=== PATIENT | female | born 1945 | race Caucasian/White ===

== ENCOUNTER 2016-08-15 21:32 | Outpatient (CLI) | payer MEDICARE, OTHER | END 2016-08-15 21:33 | disposition EMS.NT | DX: R68.89 Other general symptoms and signs (principal) ==

== ENCOUNTER 2016-09-13 15:06 | Outpatient (CLI) | payer MEDICARE, OTHER ==
[2016-09-13 17:55] LABS: BILIRUBIN,URINE NEGATIVE (NEGATIVE); PH,URINE 5.5 PH (5.0-7.5)
[2016-09-13 17:57] LABS: UA CHARGE (STRIP ONLY) YES; UR CULTURE IF IND NOT INDICATED
== END 2016-09-13 15:07 | disposition home or self-care (01) ==
LOC: LAB.F 15:06
PROVIDERS: ATTEND Internal Medicine
DX: R82.90 Unspecified abnormal findings in urine (principal)
CPT/HCPCS: 81001; 81003; 87086

== ENCOUNTER 2016-12-12 13:53 | Outpatient (CLI) | payer MEDICARE, OTHER ==
[2016-12-12 19:22] LABS: BILIRUBIN,URINE NEGATIVE (NEGATIVE)
[2016-12-12 20:01] LABS: WBC,URINE 0-3 /HPF (0-5)
== END 2016-12-12 13:54 | disposition home or self-care (01) ==
LOC: LAB.F 13:53
PROVIDERS: ATTEND Internal Medicine
DX: Z13.9 Encounter for screening, unspecified (principal)
CPT/HCPCS: 81001

== ENCOUNTER 2018-01-09 16:52 | Outpatient (CLI) | payer MEDICARE, OTHER ==
[2018-01-09] MEDS ORDERED: GADOBUTROL 7.5 MMOL/7.5 ML VIAL ONE (18:05)
[2018-01-09] MEDS ORDERED: GADOBUTROL 7.5 MMOL/7.5 ML VIAL IVP ONE ×2 (18:15)
--- NOTE | 2018-01-10 13:37 | MRI Report ---
Reason: ASYMMETRICAL LEFT SENSORINEURAL HEARING LOSS Procedure Date: 01/09/2018 Accession Number: [id number] / [id number] Procedure: MRI - IACS W/WO CPT Code: FULL RESULT: EXAM: MRI BRAIN AND INTERNAL AUDITORY CANAL (IAC),WITHOUT AND WITH CONTRAST. EXAM DATE: 01/09/2018 06:58 PM. CLINICAL HISTORY: Asymmetrical left sensorineural hearing loss. COMPARISON: None. TECHNIQUE: Multiplanar, multisequence T1-weighted and fluid-sensitive MRI sequences of the brain and IACs were performed. Other: None. IV Contrast: Without and with 6 mL Gadavist. FINDINGS: Brain Volume: Mild to moderate generalized cerebral volume loss consistent with atrophy of the brain. Parenchyma/Dura: No restricted diffusion to suggest acute or recent ischemic infarct.Minimal amorphous white matter T2 hyperintensity in the cerebral hemispheres likely from aging and chronic microangiopathy, though nonspecific. No abnormal enhancement. No evidence for intracranial space-occupying lesion. Internal Auditory Canals (IACs): Normal. No cranial nerve lesion or inflammatory process identified. The inner ear structure are symmetric and unremarkable. Ventricles/Cisterns: No hydrocephalus. Incidental cavum septum pellucidum and cavum vergae. Mild ventriculomegaly is probably from cerebral volume loss. Orbits: Prior right lens extraction. Sella Turcica: The pituitary gland, cavernous sinuses, suprasellar cistern and optic chiasm are unremarkable. Vasculature: Normal signal flow void is seen in the major arterial structures at the skull base. The dural sinuses are patent and enhance normally. Sinuses: No acute sinus disease. Bones: No focal pathologic appearing marrow signal changes. Other: None. IMPRESSION: 1. No acute abnormality. Mild chronic age-related changes. 2. Normal MRI of the IAC and posterior fossa. RADIA
== END 2018-01-09 16:53 | disposition home or self-care (01) ==
LOC: DI 16:52
PROVIDERS: ATTEND Otolaryngology
DX: H90.42 Sensorineural hearing loss, unilateral, left ear, with unrestricted hearing on the contralateral side (principal)
CPT/HCPCS: 70543; A9585

== ENCOUNTER 2018-03-25 18:49 | Observation (INO) | payer MEDICARE, OTHER ==
--- NOTE | 2018-03-25 20:37 | ED Physician Documentation ---
PD HPI FOCAL NEURO - Stated complaint Stated Complaint: RT EYE VISION LOSS - Chief complaint Chief Complaint: Neuro - History obtained from History obtained from: Patient - History of Present Illness Timing - onset: Enter time (15:30), Today Timing - duration: Hours Timing - details: Abrupt onset Severity of deficit: Moderate Weakness: No: Face, Arm, Hand, Leg, Foot, Right, Left Numbness: No: Face, Arm, Hand, Leg, Foot, Right, Left Associated symptoms: No: Headache, Nausea / vomiting, Seizure, Syncope, Fall, Head injury, Chest pain, Neck pain, Back pain, Fever Contributing factors: negative: Anticoagulated, Vascular dz, Atrial fibrillation, Prosthetic heart valve Similar symptoms before: Has not had sx before Recently seen: Other (seen by ophthalmology this afternoon, was sent to ED. Material Cutter d/w other ED MD and told him that the ophthalmology exam was unremarkable except for severe right eye visual deficit) - Additional information Additional information: sudden onset right eye vision loss except for small area that is just above/right of central axis. No other c/o. Denies any GARCIA, denies pain, numbness, weakness. Review of Systems Constitutional: reports: Reviewed and negative Eyes: reports: Loss of vision. denies: Decreased vision, Photophobia, Discharge, Irritation Ears: reports: Reviewed and negative Nose: reports: Reviewed and negative Throat: reports: Reviewed and negative Cardiac: reports: Reviewed and negative Respiratory: reports: Reviewed and negative GI: reports: Reviewed and negative Musculoskeletal: denies: Neck pain Neurologic: reports: Reviewed and negative PD PAST MEDICAL HISTORY - Past Medical History Past Medical History: Yes Cardiovascular: Hypertension, Murmur Respiratory: None Endocrine/Autoimmune: None GI: None BILINGUAL BRANCH MANAGER: Fibroids : None HEENT: Chronic vision loss, Other Psych: Anxiety, Panic attacks Musculoskeletal: None, Osteopenia Derm: None - Past Surgical History Past Surgical History: Yes General: Hiatal hernia repair Ortho: Other HEENT: Cataracts - Present Medications Home Medications: Ambulatory Orders Medication Instructions Recorded Confirmed Amlodipine Besylate 10 mg PO PRN PRN 02/26/13 01/23/17 Atenolol 50 mg PO HS 02/26/13 01/23/17 Aspirin [Adult Low Dose Aspirin EC] 81 mg ORAL DAILY 08/10/15 01/23/17 Atorvastatin Calcium 10 mg PO DAILY 08/22/15 01/23/17 Cyanocobalamin (Vitamin B-12) 500 mcg SL DAILY #30 tab.subl 01/24/17 [Vitamin B-12 (500 mcg sublingual)] Thiamine [Vitamin B-1] 100 mg PO DAILY tablet 01/24/17 - Allergies Allergies/Adverse Reactions: Allergies Allergy/AdvReac Type Severity Reaction Status Date / Time lisinopril AdvReac Intermediate angioedema Verified 03/25/18 18:59 paroxetine HCl * [From Paxil] AdvReac Intermediate shakes/cold Verified 03/25/18 18:59 triamterene [Triamterene] AdvReac Intermediate low sodium Verified 03/25/18 18:59 and potassium levels - Social History Does the pt smoke?: No Smoking Status: Never smoker Does the pt drink ETOH?: Yes ETOH Use: Beer Does the pt have substance abuse?: No - Immunizations Immunizations are current?: Yes - POLST Patient has POLST: No PD ED PE NORMAL - Vitals Vital signs reviewed: Yes - General General: Alert and oriented X 3, No acute distress, Well developed/nourished - HEENT HEENT: EOMI, Moist mucous membranes - Cardiac Cardiac: RRR, No murmur - Respiratory Respiratory: No respiratory distress, Clear bilaterally - Derm Derm: Normal color, Warm and dry, No rash - Neuro Neuro: Alert and oriented X 3, No motor deficit, No sensory deficit, Normal speech Eye Opening: Spontaneous Motor: Obeys Commands Verbal: Oriented GCS Score: 15 PD ED PE EXPANDED - Eyes Eyes: Right eye, Other (severe right eye visual deficit: can only see small area that is immediately above and right of central axis) Results - Vitals Vitals: Vital Signs - 24 hr 03/25/18 03/25/18 03/26/18 18:55 22:07 00:28 Temperature 36.5 C 36.9 C 36.9 C Heart Rate 84 71 75 Respiratory 16 16 12 Rate Blood Pressure 133/77 H 136/80 H 152/81 H O2 Saturation 98 95 97 03/26/18 03:55 Temperature 36.8 C Heart Rate 84 Respiratory 16 Rate Blood Pressure 142/81 H O2 Saturation 95 Oxygen O2 Source Room air - Labs Labs: Laboratory Tests 03/25/18 03/25/18 03/25/18 05:20 05:20 21:47 WBC 5.5 RBC 3.91 L Hgb 13.5 Hct 38.7 MCV 99.2 H MCH 34.6 H MCHC 34.9 RDW 14.9 Plt Count 269 MPV 7.3 L Neut # (Auto) 2.9 Lymph # (Auto) 1.6 [place] # (Auto) 0.6 Eos # (Auto) 0.2 Baso # (Auto) 0.1 Absolute Nucleated RBC 0.00 Nucleated RBC % 0.0 ESR Sodium Potassium Chloride Carbon Dioxide Anion Gap BUN Creatinine Estimated GFR (MDRD) Glucose Lactic Acid 0.9 Calcium Total Bilirubin AST ALT Alkaline Phosphatase Total Protein Albumin Globulin Albumin/Globulin Ratio Lipase Ethyl Alcohol < 5.0 03/25/18 03/25/18 21:47 21:47 WBC RBC Hgb Hct MCV MCH MCHC RDW Plt Count MPV Neut # (Auto) Lymph # (Auto) [place] # (Auto) Eos # (Auto) Baso # (Auto) Absolute Nucleated RBC Nucleated RBC % ESR 29 Sodium 139 Potassium 3.9 Chloride 102 Carbon Dioxide 22 Anion Gap 15.0 H BUN 9 Creatinine 0.7 Estimated GFR (MDRD) 83 L Glucose 97 Lactic Acid Calcium 9.2 Total Bilirubin 0.8 AST 52 H ALT 25 Alkaline Phosphatase 66 Total Protein 8.5 H Albumin 4.5 Globulin 4.0 Albumin/Globulin Ratio 1.1 Lipase 42 Ethyl Alcohol - Rads (name of study) CT head Radiology: Prelim report reviewed, See rad report CT orbits Radiology: Prelim report reviewed, See rad report PD MEDICAL DECISION MAKING - ED course Complexity details: reviewed results, re-evaluated patient, considered differential, d/w patient ED course: Patient initially had dilated pupils bilaterally (had just come from developmental education instructor's office). Later in ED stay, after the medication had worn off, there was a left relative afferent pupil defect noted (light to right eye = bilateral pupil constriction, swing light to left eye = both pupils dilate). I reviewed results of tests with patient and explained that I would obtain neurology consult. She requested that I contact neuro at [facility]. A page was put out to neurology at [facility] but we did not receive a return call during remainder of patient's ED stay. I then contacted neurology at [facility], d/w Dr. Varner. He said further testing would be indicated, such as CTA neck and MR brain, but says there are no beds available at [facility] at this time. I then contacted neurology at [facility] (Dr. Causey); she also recommends same tests, as well as PO ASA 325mg. She says patient can be admitted to [facility]; I explained that we do not have ophthalmology continuous improvement consultant, and she recommends I d/w ophtho at [facility]. D/W Dr. Potter (ophthalmology at [facility]); she recommends that the next phase of testing should be per neurologist's recommendation and does not feel patient needs transfer at this time. D/W Dr. Causey and she also agrees patient would be appropriate to have CTA neck and MR without contrast of brain at [facility]. Departure - Departure Disposition: 66 [facility] DC/Xfer Clinical Impression: Visual loss Condition: Stable Discharge Date/Time: 03/26/18 05:39
[2018-03-25] MEDS ORDERED: SODIUM CHLORIDE 0.9% 1,000 ML IV ONE (20:51)
[2018-03-25 21:55] LABS: BASOPHILS # (AUTO) 0.1 10^3/uL (0.0-0.1); BASOPHILS % (AUTO) 2.2 %; EOSINOPHILS # (AUTO) 0.2 10^3/uL (0.0-0.7); EOSINOPHILS % (AUTO) 4.2 %; HGB - HEMOGLOBIN 13.5 g/dL (12.0-16.0); LYMPHOCYTES # (AUTO) 1.6 10^3/uL (1.5-3.5); LYMPHOCYTES % (AUTO) 28.7 %; MEAN CORPUSCULAR HEMOGLOBIN 34.6 pg (27.0-31.0); MEAN CORPUSCULAR HGB CONC 34.9 g/dL (32.0-36.0); MEAN CORPUSCULAR VOLUME 99.2 fL (81.0-99.0); MEAN PLATELET VOLUME 7.3 fL (7.9-10.8); MONOCYTES # (AUTO) 0.6 10^3/uL (0.0-1.0); MONOCYTES % (AUTO) 11.4 %; NEUTROPHILS # (AUTO) 2.9 10^3/uL (1.5-6.6); NEUTROPHILS % (AUTO) 53.5 %; PLT - PLATELET COUNT 269 10^3/uL (130-450); RED BLOOD COUNT 3.91 10^6/uL (4.20-5.40); RED CELL DISTRIBUTION WIDTH 14.9 % (12.0-15.0); WHITE BLOOD COUNT 5.5 x10^3/uL (4.8-10.8)
[2018-03-25 22:07] LABS: ALBUMIN 4.5 g/dL (3.2-5.5); ALBUMIN/GLOBULIN RATIO 1.1 (1.0-2.2); BILIRUBIN,TOTAL 0.8 mg/dL (0.2-1.0); CALCIUM 9.2 mg/dL (8.5-10.3); CREATININE 0.7 mg/dL (0.4-1.0); TOTAL PROTEIN 8.5 g/dL (6.7-8.2)
[2018-03-25] MEDS ORDERED: IOVERSOL 320 100 ML VIAL IVP ONE (23:06)
--- NOTE | 2018-03-25 23:57 | CT Report ---
Reason: right eye vision loss Procedure Date: 03/25/2018 Accession Number: [id number] / [id number] Procedure: CT - Head W/O CPT Code: FULL RESULT: EXAM: CT HEAD EXAM DATE: 03/25/2018 10:50 PM. CLINICAL HISTORY: Right eye vision loss. COMPARISON: None. TECHNIQUE: Multiaxial CT images were obtained from the foramen magnum to the vertex. Reformats: Sagittal and coronal. IV contrast: None. In accordance with CT protocol optimization, one or more of the following dose reduction techniques were utilized for this exam: automated exposure control, adjustment of mA and/or KV based on patient size, or use of iterative reconstructive technique. FINDINGS: Parenchyma: No intraparenchymal hemorrhage. No evidence of mass, midline shift, or CT findings of infarction. Lazaro-white differentiation is distinct. Extraaxial Spaces: Normal for age. No subdural or epidural collections identified. Ventricles: Mild prominence of lateral ventricles. Similar prominence of sulci. No mass-effect. No midline shift. Sinuses and Orbits: Status post apparent prior right lens replacement. Small focus of calcification right posterior globe consistent with drusen. There is bilateral maxillary sinus mucosal thickening. Bones: No evidence of fracture or calvarial defect. Other: There are vascular calcifications.. IMPRESSION: 1. No CT evidence of acute intracranial process. New PEG of 2. Right optic disk drusen. RADIA
--- NOTE | 2018-03-26 00:17 | CT Report ---
Reason: right eye vision loss Procedure Date: 03/25/2018 Accession Number: [id number] / [id number] Procedure: CT - Orbits W/ CPT Code: FULL RESULT: EXAM: CT ORBITS WITH CONTRAST EXAM DATE: 03/25/2018 10:59 PM. CLINICAL HISTORY: Right eye vision loss. COMPARISONS: Head CT 03/25/2018. TECHNIQUE: Thin-section axial images were acquired of the face with IV contrast contrast (100 cc Optiray 320). Post-processing: Coronal and sagittal reformats. Other: None. In accordance with CT protocol optimization, one or more of the following dose reduction techniques were utilized for this exam: automated exposure control, adjustment of mA and/or KV based on patient size, or use of iterative reconstructive technique. FINDINGS: Soft Tissue: Unremarkable. Orbits: Prior right lens replacement. Right optic disk drusen. Otherwise unremarkable. Bones: No fracture or bone lesion. Temporomandibular Joints: The temporomandibular joints are symmetric and normally located. Sinuses: Bilateral macular sinus mucosal thickening. Other: None. IMPRESSION: 1. Right optic disk drusen. 2. 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 3. No enhancing abnormality. RADIA
[2018-03-26] MEDS ORDERED: ASPIRIN CHEW 81 MG TABLET PO STA (03:19)
[2018-03-26] MEDS ORDERED: IOVERSOL 320 100 ML VIAL IVP ONE ×2 (03:28)
[2018-03-26] MEDS ORDERED: SODIUM CHLORIDE FLUSH 0.9% 10 ML SYRINGE IVP PRN (04:50)
[2018-03-26] MEDS ORDERED: ACETAMINOPHEN 325 MG TABLET PO PRN (04:50)
[2018-03-26] MEDS ORDERED: PROCHLORPERAZINE 10 MG/2 ML VIAL IVP PRN (04:50)
[2018-03-26] MEDS ORDERED: LORazepam 2 MG/ML VIAL IVP PRN (05:06)
[2018-03-26 05:39] LABS: ALBUMIN 3.8 g/dL (3.2-5.5); BILIRUBIN,TOTAL 1.3 mg/dL (0.2-1.0); CALCIUM 8.6 mg/dL (8.5-10.3); CREATININE 0.7 mg/dL (0.4-1.0); TOTAL PROTEIN 7.6 g/dL (6.7-8.2)
[2018-03-26 05:41] LABS: BASOPHILS # (AUTO) 0.1 10^3/uL (0.0-0.1); BASOPHILS % (AUTO) 1.9 %; EOSINOPHILS # (AUTO) 0.1 10^3/uL (0.0-0.7); EOSINOPHILS % (AUTO) 2.5 %; HGB - HEMOGLOBIN 12.8 g/dL (12.0-16.0); LYMPHOCYTES % (AUTO) 17.3 %; MEAN CORPUSCULAR HEMOGLOBIN 34.3 pg (27.0-31.0); MEAN CORPUSCULAR HGB CONC 34.8 g/dL (32.0-36.0); MEAN CORPUSCULAR VOLUME 98.7 fL (81.0-99.0); MEAN PLATELET VOLUME 7.3 fL (7.9-10.8); MONOCYTES # (AUTO) 0.7 10^3/uL (0.0-1.0); MONOCYTES % (AUTO) 11.3 %; NEUTROPHILS # (AUTO) 3.9 10^3/uL (1.5-6.6); PLT - PLATELET COUNT 232 10^3/uL (130-450); RED BLOOD COUNT 3.72 10^6/uL (4.20-5.40); RED CELL DISTRIBUTION WIDTH 14.7 % (12.0-15.0); WHITE BLOOD COUNT 5.8 x10^3/uL (4.8-10.8)
[2018-03-26 06:06] LABS: INR 1.1 (0.8-1.2); PT - PROTHROMBIN TIME 12.4 secs (9.9-12.6)
[2018-03-26 06:14] LABS: FOLATE 5.41 ng/mL (5.90 - >24.8)
--- NOTE | 2018-03-26 06:48 | HISTORY & PHYSICAL EXAMINATION ---
DATE OF SERVICE: 03/26/2018 Physician: Natasha Glover MD HISTORY OF PRESENT ILLNESS: This is a 72-year-old, white female with a history of hypertension, several episodes of sepsis from a urinary source, where she presented with severe weakness and hypothermia, history of alcohol use with prior lactic acidosis and peripheral neuropathy from alcohol abuse. The patient presented today after having sudden right eye vision loss at 3:30 p.m. and went to an [employer]. The [employer] sent her to the emergency room and spoke to an ER MD, stating that the ophthalmology exam was normal, except for right-sided vision loss except for one small area in the right upper quadrant where she could see. The patient had workup in the emergency room including a CT of the brain that showed no evidence of a stroke. The emergency room doctor called Neurology and they recommended that she have admission for workup for a source of a stroke causing central retinal artery occlusion. The emergency room doctor again called Ophthalmology, who confirmed that if the eye exam by a different [employer] was unremarkable, then no additional ophthalmology reevaluation was needed. The patient has not had a change in her vision loss for over 12 hours now. PAST MEDICAL HISTORY: Hypertension, alcohol abuse, prior sepsis from a UTI source, prior lactic acidosis from alcohol abuse, peripheral neuropathy also felt to be from alcohol abuse. ALLERGIES 1. LISINOPRIL 2. PAROXETINE. 3. TRIAMTERENE. MEDICATIONS 1. Atenolol 50 mg at bedtime. 2. Baby aspirin daily. 3. Lipitor 20 mg at bedtime. 4. Thiamine and folate daily. FAMILY HISTORY: No inherited diseases. SOCIAL HISTORY: Patient in the past was a heavy gin drinker. Now she admits to beer drinking. She never smoked, uses no illicit drugs. REVIEW OF SYSTEMS: A comprehensive review of systems was performed and the pertinent positives are in the HPI, the rest are negative. PHYSICAL EXAMINATION VITAL SIGNS: Blood pressure 155/86, pulse 75-85 in sinus rhythm, afebrile, room air saturation 96%. HEENT: Unremarkable. NECK: Without JVD or carotid bruits. CHEST: Clear. HEART: Heart sounds are normal. No murmur. ABDOMEN: Soft, nontender. Normal bowel sounds. EXTREMITIES: No edema. NEUROLOGIC: Normal motor exam, grossly normal sensory exam and continued right eye vision loss except for one small segment in the right upper quadrant in her visual field. LABORATORIES: Normal electrolytes. Anion gap elevated at 15. BUN 9, creatinine 0.7, AST 52, ALT 25. Normal alkaline phosphatase and lipase. White count 5.5 with a normal differential. Hemoglobin 13.5 with an elevated MCV of 99, platelet count normal at 269. No INR was done. No EKG was done. IMAGING: Head CT and orbit CT showed no evidence of stroke or other findings such as hemorrhage or mass effect. She has mild sinusitis and also right optic disc drusen, and prior right lens replacement. IMPRESSION 1. Cerebrovascular accident. 2. Right eye blindness. 3. Elevated anion gap, and possible acidosis. 4. Hypertension. 5. Elevated liver function tests (elevated AST to ALT ratio, suggestive of history of alcohol abuse). 6. Alcohol abuse. 7. Macrocytosis without anemia (also suggestive of alcohol abuse). PLAN: Admit the patient to a telemetry bed, watching for atrial fibrillation. Obtain a urinalysis, MUDS screen, blood alcohol level, and B12 and folate levels. Check the liver synthesis by getting an INR. Begin a CIWA protocol and Ativan IV p.r.n. Obtain imaging to evaluate for source of embolus including a head and neck MRI and MRA, Echo with bubble study. Obtain an EKG to evaluate for atrial fibrillation. Neuro checks. Allow permissive hypertension because of the presumed stroke. Atenolol will be continued at bedtime, but with a hold parameter of a systolic blood pressure: if under 140 mmHg, then do not give it. Obtain a lactic acid level because of the high anion gap and chck a venous blood gas for pH. Start IV hydration with saline and follow the electrolytes. Check lipid panel, begin a diet with low cholesterol and low salt. DEEP VENOUS THROMBOSIS PROPHYLAXIS: SCDs. CODE STATUS: FULL CODE. ATTESTATION: The patient is expected to be discharged or transferred to another facility within 96 hours: Yes. TD: 03/26/2018 05:29 [place]
[2018-03-26] MEDS ORDERED: PANTOPRAZOLE 40 MG TABLET PO SCH (07:00)
[2018-03-26 08:16] LABS: MUDS CUTOFF CONCENTRATIONS CUTOFF CONC BELOW:
[2018-03-26 08:19] LABS: BILIRUBIN,URINE NEGATIVE (NEGATIVE); GLUCOSE, URINE (UA) NEGATIVE (NEGATIVE); KETONES,URINE (UA) TRACE mg/dL (NEGATIVE); LEUKOCYTE ESTERASE, URINE NEGATIVE (NEGATIVE); NITRITE,URINE NEGATIVE (NEGATIVE); OCCULT BLOOD,URINE NEGATIVE (NEGATIVE); PH,URINE 6.5 PH (5.0-7.5); PROTEIN,URINE NEGATIVE (NEGATIVE); UROBILINOGEN,URINE 0.2 (NORMAL) E.U./dL (NORMAL)
[2018-03-26] MEDS: SODIUM CHLORIDE FLUSH 0.9% 10 ML SYRINGE IVP SCH ×2 (08:27→16:31)
[2018-03-26 08:30] LABS: AMPHETAMINE SCREEN,URINE NEGATIVE (NEGATIVE); BENZODIAZEPINES SCREEN, URINE NEGATIVE (NEGATIVE); COCAINE SCREEN URINE NEGATIVE (NEGATIVE); METHADONE SCREEN, URINE NEGATIVE (NEGATIVE); METHAMPHETAMINES SCREEN, URINE NEGATIVE (NEGATIVE); OPIATE SCREEN, URINE NEGATIVE (NEGATIVE); OXYCODONE SCREEN, URINE NEGATIVE (NEGATIVE); PROPOXYPHENE SCREEN, URINE NEGATIVE (NEGATIVE); TRICYCLIC ANTIDEPRESSANT,URINE NEGATIVE (NEGATIVE)
[2018-03-26 08:33] LABS: BACTERIA,URINE Rare /HPF (None Seen); CASTS, URINE 0-2 Hyaline Casts /LPF; CLARITY,URINE HAZY (CLEAR); RBC,URINE 0-5 /HPF (0-5); SQUAMOUS EPITHELIAL CELL,UR FEW Squamous (<= Few)
[2018-03-26] MEDS ORDERED: POLYETHYLENE GLYCOL 3350 17 GM PACKET PO SCH (09:00)
[2018-03-26] MEDS ORDERED: ASPIRIN EC 325 MG TABLET PO SCH (09:00)
[2018-03-26] MEDS ORDERED: FOLIC ACID 1 MG TABLET PO SCH (09:00)
[2018-03-26] MEDS ORDERED: THIAMINE 100 MG TABLET PO SCH (09:00)
[2018-03-26] MEDS ORDERED: CYANOCOBALAMIN 500 MCG TABLET PO SCH (09:00)
[2018-03-26] MEDS ORDERED: GADOBUTROL 7.5 MMOL/7.5 ML VIAL ONE (11:33)
[2018-03-26] MEDS ORDERED: GADOBUTROL 7.5 MMOL/7.5 ML VIAL IVP ONE (13:11)
--- NOTE | 2018-03-26 14:04 | MRI Report ---
Reason: CVA Procedure Date: 03/26/2018 Accession Number: [id number] / [id number] Procedure: MRI - Angio Brain W/O (MRA) CPT Code: FULL RESULT: EXAMS: MRI BRAIN with and without CONTRAST. MRA BRAIN WITHOUT CONTRAST. MR angiogram neck EXAM DATE: 03/26/2018 12:58 PM. CLINICAL HISTORY: Stroke COMPARISON: Prior CT head and orbits 03/25/2018, prior MRI brain 01/09/2018. TECHNIQUE: MRI: Multiplanar, multisequence T1-weighted and fluid-sensitive MRI sequences of the brain were performed. Sequences optimized for routine evaluation. Other: None. Post-processing: None. IV Contrast: None. MRA: Multiplanar, multisequence T1-weighted and fluid-sensitive MRA sequences of the brain were performed. Other: None. Post-processing: Multiplanar 3D MIP reconstructions. IV Contrast: None. MR angiogram neck: Unenhanced MR angiogram neck performed, multiple maximum intensity projection images were generated. Findings: Relevant images are indicated (image number, series number). MRI brain: There is no acute/subacute ischemic change in the brain. Gradient echo imaging unremarkable, no hemosiderin deposition present in the brain. Moderate bilateral maxillary sinus mucosal thickening. There is no hemorrhage, mass or midline shift. There is moderate brain atrophy, moderate compensatory ventricular enlargement with mild periventricular white matter disease. There is marked midbrain atrophy. Pituitary negative. Craniocervical junction, and limited evaluation of her cervical cord negative. Postcontrast imaging demonstrates no abnormal enhancement of the brain, meninges. MR angiogram brain: There is motion artifact. Left ICA: Patent including MCA, LEX. Right ICA: Patent including MCA, LEX. Posterior circulation: Patent. MR angiogram neck: Study partly degraded due to the lack of IV contrast. Aortic arch: Incompletely seen, origin of the common carotid artery, left subclavian artery appear grossly intact. Left carotid artery: Appears patent without significant stenosis. Right carotid artery: Some artifact appears present at the level of the carotid bulb, proximal ICA, a 50% stenosis of the proximal ICA cannot be excluded. Otherwise patent. Left vertebral artery: Appears grossly patent, though origin poorly seen. Right vertebral artery: Appears grossly patent, though origin poorly seen. Impressions: MRI brain: 1. No acute/subacute ischemic change. 2. Moderate generalized brain atrophy, marked midbrain atrophy. Only mild suspected white matter disease present. Findings are supportive of the presence of a primary neurodegenerative process. Correlate with neurological exam findings. 3. Postcontrast imaging negative MR angiogram brain: 1. There is motion artifact. Otherwise patent major arteries of the brain, with normal anatomical variability as described. No aneurysm, dissection, stenosis, AVM. MR angiogram neck: Partly degraded due to the lack of IV contrast. 1. Aortic arch incompletely seen, origin of the left common carotid artery, left subclavian artery appear grossly intact. 2. Left carotid artery: Unremarkable. 3. Right carotid artery: Cannot exclude 50% focal narrowing proximal ICA, superimposed artifact present. Consider correlation with vascular ultrasound. 4. Left vertebral artery: Appears grossly patent, though origin poorly seen. 5. Right vertebral artery: Appears grossly patent, though origin poorly seen. RADIA
[2018-03-26 15:35] VITALS: BP 125/72
--- NOTE | 2018-03-26 16:20 | DISCHARGE SUMMARY ---
Discharge Summary Admit Date: 03/26/18 Discharge Date: 03/26/18 Discharging Provider: Luiz Young MD Primary Care Provider: Marianne Baez MD Code Status: Attempt Resuscitation Condition at Discharge: Stable Discharge Disposition: 01 Home, Self Care - DIAGNOSES Admission Diagnoses: 1. Cerebrovascular accident 2. Right eye blindness 2. Elevated lactic acid level 4. Hypertension 5. Elevated liver function tests 6. History of elevated lactic acid from alcohol abuse 7. Macrocytosis, also suggestive of alcohol abuse Discharge Diagnoses with Status of Each Condition: 1. Central retinal artery occlusion: Guarded 2. Brain atrophy: Guarded 3. Folic acid deficiency: Stable 4. Hyperlipidemia: Stable 5. Alcohol abuse: Stable - HPI History of Present Illness: Patient is a 72-year-old white female with a history of hypertension, several episodes of sepsis from a urinary source, where she presented with complete weakness and hypothermia, history of alcohol abuse with prior lactic acidosis from alcohol abuse and peripheral neuropathy. The patient presented today after having sudden right eye vision loss at 3:30 PM and went to her business initiatives manager. The business initiatives manager sent her to the emergency room and spoke to an ER physician, stating that the ophthalmology exam was normal, except for severe right sided vision loss aside from one small area in the right upper quadrant where she could see. The patient had workup in the emergency department including CT of the brain that showed no evidence of stroke. The emergency room physician called the neurologist electronics lead at [facility] who recommended that the patient be admitted for workup for a source of a stroke causing central retinal artery occlusion. The emergency room physician again called ophtha lmology, who confirmed that if the eye exam by a different business initiatives manager was unremarkable, then no additional ophthalmology reevaluation was needed. The patient has not had a change in her vision loss over the last 12 hours. - HOSPITAL COURSE Hospital Course: During the hospitalization the patient had no change in her symptoms. She had persistent loss of vision in the right eye. She had no other focal neurologic deficits. The patient underwent imaging studies with MRI of the brain, MRA of the brain and neck. The patient was found to have moderate generalized brain atrophy, marked midbrain atrophy. Only mild suspected white matter disease was present. The findings were supportive of the presence of a primary neurodegenerative process. The patient's left carotid artery was unremarkable and right carotid artery they could not exclude 50% focal narrowing of the proximal ICA, superimposed artifact was present. We spoke with neurology after studies were done. [facility] neurologist recommended that the patient be placed on aspirin and Lipitor. She recommended that the patient follow-up with neurology as an outpatient for further workup of possible neurodegenerative disorder. The patient also underwent an echocardiogram which was unremarkable. The patient had no episodes of atrial fibrillation on telemetry. The patient was discharged home in stable condition and will follow up with her primary care physician and neurology as an outpatient. The patient was also found to have folic acid deficiency and was placed on folic acid. - ALLERGIES Allergies/Adverse Reactions: Allergies Allergy/AdvReac Type Severity Reaction Status Date / Time lisinopril AdvReac Intermediate angioedema Verified 03/25/18 18:59 paroxetine HCl * [From Paxil] AdvReac Intermediate shakes/cold Verified 03/25/18 18:59 triamterene [Triamterene] AdvReac Intermediate low sodium Verified 03/25/18 18:59 and potassium levels - MEDICATIONS Home Medications: Ambulatory Orders Medication Instructions Recorded Confirmed Amlodipine Besylate 5 mg PO DAILY 02/26/13 03/26/18 Atenolol 50 mg PO QPM 02/26/13 03/26/18 Thiamine [Vitamin B-1] 100 mg PO DAILY tablet 01/24/17 03/26/18 Aspirin EC [Ecotrin] 325 mg PO DAILY #60 tablet 03/26/18 Atorvastatin Calcium [Lipitor] 80 mg PO DAILY #60 tablet 03/26/18 Cyanocobalamin (Vitamin B-12) 2,500 mcg PO DAILY 03/26/18 03/26/18 [Vitamin B-12] Folic Acid 1 mg PO DAILY #30 tablet 03/26/18 - PHYSICAL EXAM AT DISCHARGE General Appearance: positive: No acute distress, Alert Eyes Bilateral: positive: Normal inspection, PERRL, EOMI, No lid inflammation, Conjunctivae nml, No scleral icterus, Other (Right eye vision loss) ENT: positive: ENT inspection nml, Pharynx nml, No signs of dehydration. negative: Purulent nasal drainage, Pharyngeal erythema, Oral lesions Neck: positive: Nml inspection, Thyroid nml, No JVD, Trachea midline. negative: Thyromegaly, Lymphadenopathy (R), Lymphadenopathy (L), Stiff neck, Carotid bruit, Tracheal deviation Respiratory: positive: Chest non-tender, No respiratory distress, Breath sounds nml. negative: Wheezes, Rales, Rhonchi Cardiovascular: positive: Regular rate & rhythm, No murmur, No gallop Peripheral Pulses: positive: 2+ Abdomen: positive: Non-tender, No organomegaly, Nml bowel sounds, No distention. negative: Guarding, Rebound, Hepatomegaly Back: positive: Nml inspection. negative: CVA tenderness (R), CVA tenderness (L) Skin: positive: Color nml, No rash, Warm. negative: Cyanosis, Diaphoresis Extremities: positive: Non-tender, Full ROM, Nml appearance, No pedal edema Neurologic/Psychiatric: positive: Oriented x3, Motor nml, Sensation nml, Mood/affect nml, Other (Right eye vision loss) - LABS Result Diagrams: 03/26/18 05:20 03/26/18 05:20 Other Lab Results: Laboratory Results WBC 5.8 x10^3/uL (4.8-10.8) 03/26/18 05:20 RBC 3.72 10^6/uL (4.20-5.40) L 03/26/18 05:20 Hgb 12.8 g/dL (12.0-16.0) 03/26/18 05:20 Hct 36.7 % (37.0-47.0) L 03/26/18 05:20 MCV 98.7 fL (81.0-99.0) 03/26/18 05:20 MCH 34.3 pg (27.0-31.0) H 03/26/18 05:20 MCHC 34.8 g/dL (32.0-36.0) 03/26/18 05:20 RDW 14.7 % (12.0-15.0) 03/26/18 05:20 Plt Count 232 10^3/uL (130-450) 03/26/18 05:20 MPV 7.3 fL (7.9-10.8) L 03/26/18 05:20 Neut # (Auto) 3.9 10^3/uL (1.5-6.6) 03/26/18 05:20 Lymph # (Auto) 1.0 10^3/uL (1.5-3.5) L 03/26/18 05:20 Menard # (Auto) 0.7 10^3/uL (0.0-1.0) 03/26/18 05:20 Eos # (Auto) 0.1 10^3/uL (0.0-0.7) 03/26/18 05:20 Baso # (Auto) 0.1 10^3/uL (0.0-0.1) 03/26/18 05:20 Absolute Nucleated RBC 0.00 x10^3/uL 03/26/18 05:20 Nucleated RBC % 0.0 /100WBC 03/26/18 05:20 ESR 29 mm/Hr (0-30) 03/25/18 21:47 PT 12.4 secs (9.9-12.6) 03/26/18 05:20 INR 1.1 (0.8-1.2) 03/26/18 05:20 Sodium 138 mmol/L (135-145) 03/26/18 05:20 Potassium 3.6 mmol/L (3.5-5.0) 03/26/18 05:20 Chloride 103 mmol/L (101-111) 03/26/18 05:20 Carbon Dioxide 24 mmol/L (21-32) 03/26/18 05:20 Anion Gap 11.0 (6-13) 03/26/18 05:20 BUN 8 mg/dL (6-20) 03/26/18 05:20 Creatinine 0.7 mg/dL (0.4-1.0) 03/26/18 05:20 Estimated GFR (MDRD) 83 (>89) L 03/26/18 05:20 Glucose 109 mg/dL (70-100) H 03/26/18 05:20 Lactic Acid 0.9 mmol/L (0.5-2.2) 03/25/18 05:20 Calcium 8.6 mg/dL (8.5-10.3) 03/26/18 05:20 Magnesium 1.3 mg/dL (1.7-2.8) L 03/26/18 05:20 Total Bilirubin 1.3 mg/dL (0.2-1.0) H 03/26/18 05:20 AST 44 IU/L (10-42) H 03/26/18 05:20 ALT 20 IU/L (10-60) 03/26/18 05:20 Alkaline Phosphatase 67 IU/L (42-121) 03/26/18 05:20 Total Protein 7.6 g/dL (6.7-8.2) 03/26/18 05:20 Albumin 3.8 g/dL (3.2-5.5) 03/26/18 05:20 Globulin 3.8 g/dL (2.1-4.2) 03/26/18 05:20 Albumin/Globulin Ratio 1.0 (1.0-2.2) 03/26/18 05:20 Lipase 42 U/L (22-51) 03/25/18 21:47 Vitamin B12 3131 pg/mL (180-914) H 03/26/18 05:20 Folate 5.41 ng/mL (5.90 - >24.8) L 03/26/18 05:20 Urine Color YELLOW 03/26/18 08:00 Urine Clarity HAZY (CLEAR) 03/26/18 08:00 Urine pH 6.5 PH (5.0-7.5) 03/26/18 08:00 Ur Specific Mineral 1.010 (1.002-1.030) 03/26/18 08:00 Urine Protein NEGATIVE mg/dL (NEGATIVE) 03/26/18 08:00 Urine Glucose (UA) NEGATIVE mg/dL (NEGATIVE) 03/26/18 08:00 Urine Ketones TRACE mg/dL (NEGATIVE) 03/26/18 08:00 Urine Occult Blood NEGATIVE (NEGATIVE) 03/26/18 08:00 Urine Nitrite NEGATIVE (NEGATIVE) 03/26/18 08:00 Urine Bilirubin NEGATIVE (NEGATIVE) 03/26/18 08:00 Urine Urobilinogen 0.2 (NORMAL) E.U./dL (NORMAL) 03/26/18 08:00 Ur Leukocyte Esterase NEGATIVE (NEGATIVE) 03/26/18 08:00 Urine RBC 0-5 /HPF (0-5) 03/26/18 08:00 Urine WBC 4-5 /HPF (0-5) 03/26/18 08:00 Ur Squamous Epith Cells FEW Squamous (<= Few) 03/26/18 08:00 Urine Bacteria Rare /HPF (None Seen) 03/26/18 08:00 Urine Casts 0-2 Hyaline Casts /LPF 03/26/18 08:00 Urine Culture Comments NOT INDICATED 03/26/18 08:00 Urine Opiates Screen NEGATIVE (NEGATIVE) 03/26/18 08:00 Ur Oxycodone Screen NEGATIVE (NEGATIVE) 03/26/18 08:00 Urine Methadone Screen NEGATIVE (NEGATIVE) 03/26/18 08:00 Ur Propoxyphene Screen NEGATIVE (NEGATIVE) 03/26/18 08:00 Ur Barbiturates Screen NEGATIVE (NEGATIVE) 03/26/18 08:00 Ur Tricyclics Screen NEGATIVE (NEGATIVE) 03/26/18 08:00 Ur Phencyclidine Scrn NEGATIVE (NEGATIVE) 03/26/18 08:00 Ur Amphetamine Screen NEGATIVE (NEGATIVE) 03/26/18 08:00 U Methamphetamines Scrn NEGATIVE (NEGATIVE) 03/26/18 08:00 U Benzodiazepines Scrn NEGATIVE (NEGATIVE) 03/26/18 08:00 Urine Cocaine Screen NEGATIVE (NEGATIVE) 03/26/18 08:00 U Cannabinoids Screen NEGATIVE (NEGATIVE) 03/26/18 08:00 Ethyl Alcohol < 5.0 mg/dL 03/25/18 05:20 - DIAGNOSTIC IMAGING Diagnostic Imaging Results: Final report reviewed Diagnostic Imaging Results Comments: EXAM: CT HEAD EXAM DATE: 03/25/2018 10:50 PM. CLINICAL HISTORY: Right eye vision loss. COMPARISON: None. TECHNIQUE: Multiaxial CT images were obtained from the foramen magnum to the vertex. Reformats: Sagittal and coronal. IV contrast: None. In accordance with CT protocol optimization, one or more of the following dose reduction techniques were utilized for this exam: automated exposure control, adjustment of mA and/or KV based on patient size, or use of iterative reconstructive technique. FINDINGS: Parenchyma: No intraparenchymal hemorrhage. No evidence of mass, midline shift, or CT findings of infarction. Lazaro-white differentiation is distinct. Extraaxial Spaces: Normal for age. No subdural or epidural collections identified. Ventricles: Mild prominence of lateral ventricles. Similar prominence of sulci. No mass-effect. No midline shift. Sinuses and Orbits: Status post apparent prior right lens replacement. Small focus of calcification right posterior globe consistent with drusen. There is bilateral maxillary sinus mucosal thickening. Bones: No evidence of fracture or calvarial defect. Other: There are vascular calcifications.. IMPRESSION: 1. No CT evidence of acute intracranial process. New PEG of 2. Right optic disk drusen. EXAM: CT ORBITS WITH CONTRAST EXAM DATE: 03/25/2018 10:59 PM. CLINICAL HISTORY: Right eye vision loss. COMPARISONS: Head CT 03/25/2018. TECHNIQUE: Thin-section axial images were acquired of the face with IV contrast contrast (100 cc Optiray 320). Post-processing: Coronal and sagittal reformats. Other: None. In accordance with CT protocol optimization, one or more of the following dose reduction techniques were utilized for this exam: automated exposure control, adjustment of mA and/or KV based on patient size, or use of iterative reconstructive technique. FINDINGS: Soft Tissue: Unremarkable. Orbits: Prior right lens replacement. Right optic disk drusen. Otherwise unremarkable. Bones: No fracture or bone lesion. Temporomandibular Joints: The temporomandibular joints are symmetric and normally located. Sinuses: Bilateral macular sinus mucosal thickening. Other: None. IMPRESSION: 1. Right optic disk drusen. 2. 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 3. No enhancing abnormality. EXAMS: MRI BRAIN with and without CONTRAST. MRA BRAIN WITHOUT CONTRAST. MR angiogram neck EXAM DATE: 03/26/2018 12:58 PM. CLINICAL HISTORY: Stroke COMPARISON: Prior CT head and orbits 03/25/2018, prior MRI brain 01/09/2018. TECHNIQUE: MRI: Multiplanar, multisequence T1-weighted and fluid-sensitive MRI sequences of the brain were performed. Sequences optimized for routine evaluation. Other: None. Post-processing: None. IV Contrast: None. MRA: Multiplanar, multisequence T1-weighted and fluid-sensitive MRA sequences of the brain were performed. Other: None. Post-processing: Multiplanar 3D MIP reconstructions. IV Contrast: None. MR angiogram neck: Unenhanced MR angiogram neck performed, multiple maximum intensity projection images were generated. Findings: Relevant images are indicated (image number, series number). MRI brain: There is no acute/subacute ischemic change in the brain. Gradient echo imaging unremarkable, no hemosiderin deposition present in the brain. Moderate bilateral maxillary sinus mucosal thickening. There is no hemorrhage, mass or midline shift. There is moderate brain atrophy, moderate compensatory ventricular enlargement with mild periventricular white matter disease. There is marked midbrain atrophy. Pituitary negative. Craniocervical junction, and limited evaluation of her cervical cord negative. Postcontrast imaging demonstrates no abnormal enhancement of the brain, meninges. MR angiogram brain: There is motion artifact. Left ICA: Patent including MCA, LEX. Right ICA: Patent including MCA, LEX. Posterior circulation: Patent. MR angiogram neck: Study partly degraded due to the lack of IV contrast. Aortic arch: Incompletely seen, origin of the common carotid artery, left subclavian artery appear grossly intact. Left carotid artery: Appears patent without significant stenosis. Right carotid artery: Some artifact appears present at the level of the carotid bulb, proximal ICA, a 50% stenosis of the proximal ICA cannot be excluded. Otherwise patent. Left vertebral artery: Appears grossly patent, though origin poorly seen. Right vertebral artery: Appears grossly patent, though origin poorly seen. Impressions: MRI brain: 1. No acute/subacute ischemic change. 2. Moderate generalized brain atrophy, marked midbrain atrophy. Only mild suspected white matter disease present. Findings are supportive of the presence of a primary neurodegenerative process. Correlate with neurological exam findings. 3. Postcontrast imaging negative MR angiogram brain: 1. There is motion artifact. Otherwise patent major arteries of the brain, with normal anatomical variability as described. No aneurysm, dissection, stenosis, AVM. MR angiogram neck: Partly degraded due to the lack of IV contrast. 1. Aortic arch incompletely seen, origin of the left common carotid artery, left subclavian artery appear grossly intact. 2. Left carotid artery: Unremarkable. 3. Right carotid artery: Cannot exclude 50% focal narrowing proximal ICA, superimposed artifact present. Consider correlation with vascular ultrasound. 4. Left vertebral artery: Appears grossly patent, though origin poorly seen. 5. Right vertebral artery: Appears grossly patent, though origin poorly seen. - FOLLOW UP Follow Up: Patient presented with acute vision loss in the right eye. She underwent complete workup with CT scans, MRIs and echocardiogram. Neurology was consulted at [facility] and thought that this was likely a central retinal artery occlusion. They recommended patient be placed on aspirin and Lipitor which the patient was already on therefore her doses were increased to 325 mg of aspirin and 80 mg of Lipitor. They asked that the patient follow-up with them as an outpatient as there was some abnormal findings on MRI suggesting a possible neurodegenerative disorder. The patient will follow up with her primary care physician and with neurology as an outpatient. She was discharged home in stable condition. - TIME SPENT Time Spent in Discharge (Minutes): 35
--- NOTE | 2018-03-26 16:39 | Discharge Plan ---
Discharge Plan Disposition: 01 Home, Self Care Condition: Stable Prescriptions: Aspirin EC [Ecotrin] 325 mg PO DAILY #60 tablet Atorvastatin Calcium [Lipitor] 80 mg PO DAILY #60 tablet Folic Acid 1 mg PO DAILY #30 tablet Diet: Regular Activity Restrictions: Activity as Tolerated Shower Restrictions: No Driving Restrictions: No Additional Instructions or Follow Up instructions: You presented to the emergency department with decreased visual acuity in your right eye. This has persisted throughout the hospitalization. You were worked up with multiple images including CT scans and MRIs. We did have some abnormal findings on her MRI for which she will need to follow-up with neurology as an outpatient. The presumed diagnosis of your right eye blindness is a central retinal artery occlusion. Unfortunately this is usually a permanent defect and is unlikely to resolve especially given that has been ongoing for more than 24 hours now. Neurology recommended that you continue aspirin but we have increased the dose to 325 mg daily. They also recommended continuation of Lipitor for which we have also increased the dose to 80 mg. Please follow-up with your primary care physician to get a referral for neurology. No Smoking: If you smoke, Please STOP! Call for help. Follow-up with: ESTEBAN GRIDER MD [Primary Care Provider] -
[2018-03-26] MEDS ORDERED: ATORVASTATIN 10 MG TABLET PO SCH (21:00)
[2018-03-26] MEDS ORDERED: ATENOLOL 25 MG TABLET PO SCH (21:00)
== END 2018-03-26 17:42 | disposition home or self-care (01) ==
LOC: ED 18:49 → MS2 03-26 04:50 → INTOOBSV 03-26 04:50 → UNDOADMOB 03-26 04:50 → MS2 03-26 07:54 → UNDODISOB 03-26 17:42
PROVIDERS: ADMIT Internal Medicine; ATTEND Internal Medicine
DX: I10 Essential (primary) hypertension (principal); H34.11 Central retinal artery occlusion, right eye; G31.89 Other specified degenerative diseases of nervous system; E53.8 Deficiency of other specified B group vitamins; E78.5 Hyperlipidemia, unspecified; Z79.82 Long term (current) use of aspirin; F10.10 Alcohol abuse, uncomplicated; I48.91 Unspecified atrial fibrillation; R79.89 Other specified abnormal findings of blood chemistry
CPT/HCPCS: 36415; 70450; 70481; 70544; 70547; 70553; 80053; 81001; 82607; 82746; 83605; 83690; 83735; 85025; 85610; 85651; 93005; 93306; 96360; 99284; 99285; A9270; A9585; G0378; Q9967; 80306; 80320; 82803; 87086

== ENCOUNTER 2020-01-02 11:13 | Inpatient (IN) | payer MEDICARE, OTHER ==
[2020-01-02] MEDS ORDERED: DEXTROSE 50% ABBOJECT 25 GM/50 ML SYRINGE IVP STA (11:30)
--- NOTE | 2020-01-02 11:35 | ED Physician Documentation ---
History of Present Illness - Stated complaint Stated Complaint: LOW BP/TEMP - Chief complaint Chief Complaint: General - History obtained from History obtained from: Patient, Family - History of Present Illness Timing: Today - Additonal information Additional information: 74-year-old female with a history of alcoholism was found by her this morning less responsive than usual and cold.He got out the thermometer and measured her temperature at 91 and called the ambulance. The patient indicates that she has no specific symptoms and this is after she has been given D50. She arrived to the emergency department with a blood glucose of 32. She was immediately administered D50. She was found to be mildly delayed dehydrated on interrogation of the inferior vena cava and she was administered a banana bag intravenously as well. Her initial lactate was over 10. She has had this similar presentation with sepsis with both pneumonia and urinary tract infection. She denies any current symptoms. She does drink regularly and has had issues with shakes but not seizure or DT's with withdrawal. She was found with mini bottles in her purse this morning. Review of Systems Constitutional: denies: Fever Eyes: denies: Decreased vision Ears: denies: Ear pain Nose: denies: Congestion Throat: denies: Sore throat Cardiac: denies: Chest pain / pressure, Palpitations Respiratory: denies: Dyspnea, Cough GI: denies: Abdominal Pain, Nausea, Vomiting : denies: Dysuria, Frequency Skin: denies: Rash Musculoskeletal: denies: Neck pain, Back pain Neurologic: denies: Generalized weakness, Focal weakness, Numbness PD PAST MEDICAL HISTORY - Past Medical History Cardiovascular: Hypertension, Murmur Respiratory: None Endocrine/Autoimmune: None GI: None MASTER SONAR TECHNICIAN: Fibroids : None HEENT: Chronic vision loss, Other Psych: Anxiety, Panic attacks Musculoskeletal: None, Osteopenia Derm: None - Past Surgical History Past Surgical History: Yes General: Hiatal hernia repair Ortho: Other HEENT: Cataracts - Present Medications Home Medications: Ambulatory Orders Medication Instructions Recorded Confirmed Amlodipine Besylate 5 mg PO DAILY 02/26/13 03/26/18 atenoloL [Atenolol] 50 mg PO QPM 02/26/13 03/26/18 Thiamine [Vitamin B-1] 100 mg PO DAILY tablet 01/24/17 03/26/18 Aspirin EC [Ecotrin] 325 mg PO DAILY #60 tablet 03/26/18 Atorvastatin Calcium [Lipitor] 80 mg PO DAILY #60 tablet 03/26/18 Cyanocobalamin (Vitamin B-12) 2,500 mcg PO DAILY 03/26/18 03/26/18 [Vitamin B-12] Folic Acid 1 mg PO DAILY #30 tablet 03/26/18 - Allergies Allergies/Adverse Reactions: Allergies Allergy/AdvReac Type Severity Reaction Status Date / Time lisinopril AdvReac Intermediate angioedema Verified 01/02/20 11:29 paroxetine HCl * [From Paxil] AdvReac Intermediate shakes/cold Verified 01/02/20 11:29 triamterene [Triamterene] AdvReac Intermediate low sodium Verified 01/02/20 11:29 and potassium levels - Social History Does the pt smoke?: No Smoking Status: Never smoker Does the pt drink ETOH?: Yes Does the pt have substance abuse?: No - Immunizations Immunizations are current?: Yes - POLST Patient has POLST: No PD ED PE NORMAL - Vitals Vital signs reviewed: Yes (normal ) - General General: Alert and oriented X 3, No acute distress, Well developed/nourished - HEENT HEENT: Atraumatic, PERRL, EOMI - Neck Neck: Supple, no meningeal sign, No bony TTP - Cardiac Cardiac: RRR, No murmur - Respiratory Respiratory: No respiratory distress, Clear bilaterally - Abdomen Abdomen: Normal bowel sounds, Soft, Non tender, Non distended, No organomegaly - Back Back: No CVA TTP, No spinal TTP - Derm Derm: Normal color, Warm and dry, No rash - Extremities Extremities: No deformity, No edema - Neuro Neuro: Alert and oriented X 3, regional education coordinator 2-12 intact, No motor deficit, No sensory deficit, Normal speech Eye Opening: Spontaneous Motor: Obeys Commands Verbal: Oriented GCS Score: 15 - Psych Psych: Normal mood, Normal affect Results - Vitals Vitals: Vital Signs - 24 hr 01/02/20 01/02/20 01/02/20 11:26 12:03 12:30 Temperature 34.7 C L 33.4 C L Heart Rate 81 74 70 Respiratory 20 16 14 Rate Blood Pressure 129/61 122/66 135/78 H O2 Saturation 99 100 100 01/02/20 01/02/20 01/02/20 13:00 13:30 13:41 Temperature 34.5 C L Heart Rate 71 73 Respiratory 11 L 17 Rate Blood Pressure 124/68 114/70 O2 Saturation 100 100 01/02/20 01/02/20 01/02/20 14:00 14:30 15:00 Temperature Heart Rate 92 93 104 H Respiratory 14 14 17 Rate Blood Pressure 122/70 135/69 H 120/70 O2 Saturation 100 100 99 Oxygen O2 Source Room air - EKG (time done) 1120 Rate: Rate (enter#) (70) Rhythm: NSR Compare to prior EKG: Changed from prior EKG (SPT 03-26-2018 the QTc has prolonged) Computer interpretation: Disagree with computer (I do not see evidence of LVH or LAE) - Labs Labs: Laboratory Tests 01/02/20 01/02/20 01/02/20 11:28 11:34 11:43 WBC 8.5 RBC 4.11 L Hgb 13.5 Hct 43.1 MCV 104.9 H MCH 32.8 H MCHC 31.3 L RDW 14.1 Plt Count 260 MPV 9.4 Neut # (Auto) 6.4 Lymph # (Auto) 1.2 L [place] # (Auto) 0.6 Eos # (Auto) 0.1 Baso # (Auto) 0.1 Absolute Nucleated RBC 0.00 Nucleated RBC % 0.0 PT INR APTT Sodium Potassium Chloride Carbon Dioxide Anion Gap BUN Creatinine Estimated GFR (MDRD) Glucose POC Whole Bld Glucose 32 L* Lactic Acid Calcium Total Bilirubin AST ALT Alkaline Phosphatase Total Protein Albumin Globulin Albumin/Globulin Ratio Lipase Urine Color Urine Clarity Urine pH Ur Specific [place] Urine Protein Urine Glucose (UA) Urine Ketones Urine Occult Blood Urine Nitrite Urine Bilirubin Urine Urobilinogen Ur Leukocyte Esterase Ur Microscopic Review Urine Culture Comments Ethyl Alcohol Serum Ketones NEGATIVE 01/02/20 01/02/20 01/02/20 11:43 11:43 11:43 WBC RBC Hgb Hct MCV MCH MCHC RDW Plt Count MPV Neut # (Auto) Lymph # (Auto) [place] # (Auto) Eos # (Auto) Baso # (Auto) Absolute Nucleated RBC Nucleated RBC % PT INR APTT Sodium 140 Potassium 3.7 Chloride 98 L Carbon Dioxide 12 L* Anion Gap 30.0 H BUN 23 H Creatinine 1.1 H Estimated GFR (MDRD) 49 L Glucose 62 L POC Whole Bld Glucose Lactic Acid > 10.0 H* Calcium 9.4 Total Bilirubin 1.2 H AST 228 H ALT 70 H Alkaline Phosphatase 94 Total Protein 8.1 Albumin 4.0 Globulin 4.1 Albumin/Globulin Ratio 1.0 Lipase 34 Urine Color Urine Clarity Urine pH Ur Specific [place] Urine Protein Urine Glucose (UA) Urine Ketones Urine Occult Blood Urine Nitrite Urine Bilirubin Urine Urobilinogen Ur Leukocyte Esterase Ur Microscopic Review Urine Culture Comments Ethyl Alcohol 217.7 Serum Ketones 01/02/20 01/02/20 01/02/20 12:50 16:04 16:29 WBC RBC Hgb Hct MCV MCH MCHC RDW Plt Count MPV Neut # (Auto) Lymph # (Auto) [place] # (Auto) Eos # (Auto) Baso # (Auto) Absolute Nucleated RBC Nucleated RBC % PT INR APTT Sodium Potassium Chloride Carbon Dioxide Anion Gap BUN Creatinine Estimated GFR (MDRD) Glucose POC Whole Bld Glucose 160 H Lactic Acid 7.8 H* Calcium Total Bilirubin AST ALT Alkaline Phosphatase Total Protein Albumin Globulin Albumin/Globulin Ratio Lipase Urine Color YELLOW Urine Clarity CLEAR Urine pH 5.0 Ur Specific [place] >=1.030 H Urine Protein NEGATIVE Urine Glucose (UA) NEGATIVE Urine Ketones 15 H Urine Occult Blood NEGATIVE Urine Nitrite NEGATIVE Urine Bilirubin NEGATIVE Urine Urobilinogen 0.2 (NORMAL) Ur Leukocyte Esterase NEGATIVE Ur Microscopic Review NOT INDICATED Urine Culture Comments NOT INDICATED Ethyl Alcohol Serum Ketones 01/02/20 16:29 WBC RBC Hgb Hct MCV MCH MCHC RDW Plt Count MPV Neut # (Auto) Lymph # (Auto) [place] # (Auto) Eos # (Auto) Baso # (Auto) Absolute Nucleated RBC Nucleated RBC % PT 11.9 INR 1.1 APTT 24.8 L Sodium Potassium Chloride Carbon Dioxide Anion Gap BUN Creatinine Estimated GFR (MDRD) Glucose POC Whole Bld Glucose Lactic Acid Calcium Total Bilirubin AST ALT Alkaline Phosphatase Total Protein Albumin Globulin Albumin/Globulin Ratio Lipase Urine Color Urine Clarity Urine pH Ur Specific [place] Urine Protein Urine Glucose (UA) Urine Ketones Urine Occult Blood Urine Nitrite Urine Bilirubin Urine Urobilinogen Ur Leukocyte Esterase Ur Microscopic Review Urine Culture Comments Ethyl Alcohol Serum Ketones - [facility]: Prelim report reviewed (Impression clear lungs, without focal infiltrates. Postoperative and degenerative changes are seen. ), EMP read indepedently, See rad report Procedures - IVC sono (time) 1200 Bedside IVC sono: IVC measures (cm) (0.93), IVC collapsed c insp (cm) (complete), Dehydration (est 2 liter deficit) PD MEDICAL DECISION MAKING - ED course Complexity details: reviewed old records, reviewed results, re-evaluated patient, considered differential, d/w patient, d/w family ED course: 74-year-old female with a prior history of sepsis and elevated lactate has come to the emergency department today with a low body temperature and a blood sugar of 32. She is not on insulin, she is not a diabetic and at the time of my evaluation of the patient she has been given D50 and is talking normally acting normally appears happy and she does appear intoxicated. She is found to be mildly dehydrated on interrogation of the inferior vena cava and a banana bag is administered she is found to have an elevated lactate greater than 10. She has had this presentation previously with what appeared to be sepsis with UTI and pneumonia. She cleared rapidly with hydration and was able to go home the next day despite the diagnosis of sepsis. She has subsequently come in with acidosis and intoxication again with the presentation of hypothermia and hypoglycemia and that time did not have an infection and cleared rapidly again with hydration. Today after initial hydration her lactic acid is down to 7.8 but she will need overnight hydration. No evidence of infection today. Departure - Departure Disposition: ED Place in Observation Clinical Impression: Lactic acid acidosis, Dehydration Alcohol intoxication Qualifiers: Complication of substance-induced condition: with unspecified complication Qualified Code(s): F10.929 - Alcohol use, unspecified with intoxication, unspecified
[2020-01-02 11:48] LABS: BASOPHILS # (AUTO) 0.1 10^3/uL (0.0-0.1); BASOPHILS % (AUTO) 1.2 %; EOSINOPHILS # (AUTO) 0.1 10^3/uL (0.0-0.7); EOSINOPHILS % (AUTO) 1.3 %; HGB - HEMOGLOBIN 13.5 g/dL (12.0-16.0); LYMPHOCYTES # (AUTO) 1.2 10^3/uL (1.5-3.5); LYMPHOCYTES % (AUTO) 14.2 %; MEAN CORPUSCULAR HEMOGLOBIN 32.8 pg (27.0-31.0); MEAN CORPUSCULAR HGB CONC 31.3 g/dL (32.0-36.0); MEAN CORPUSCULAR VOLUME 104.9 fL (81.0-99.0); MEAN PLATELET VOLUME 9.4 fL (7.9-10.8); MONOCYTES # (AUTO) 0.6 10^3/uL (0.0-1.0); MONOCYTES % (AUTO) 7.5 %; NEUTROPHILS # (AUTO) 6.4 10^3/uL (1.5-6.6); NEUTROPHILS % (AUTO) 75.3 %; PLT - PLATELET COUNT 260 10^3/uL (130-450); RED BLOOD COUNT 4.11 10^6/uL (4.20-5.40); RED CELL DISTRIBUTION WIDTH 14.1 % (12.0-15.0); WHITE BLOOD COUNT 8.5 x10^3/uL (4.8-10.8)
[2020-01-02] MEDS ORDERED: FOLIC ACID INJ 1 MG, THIAMINE INJ 100 MG, MAGNESIUM SULFATE 2 GM, MULTIVITAMIN 10 ML in... IV STA ×5 (12:17)
[2020-01-02 12:19] LABS: BILIRUBIN,TOTAL 1.2 mg/dL (0.2-1.0); CALCIUM 9.4 mg/dL (8.5-10.3); CREATININE 1.1 mg/dL (0.4-1.0); TOTAL PROTEIN 8.1 g/dL (6.7-8.2)
--- NOTE | 2020-01-02 13:07 | XRAY Report ---
PROCEDURE: Chest 2 View X-Ray INDICATIONS: cough TECHNIQUE: 2 view(s) of the chest. COMPARISON: 01/23/2017, 02/03/2016 FINDINGS: Surgical changes and devices: There is partial visualization of right proximal humerus hardware. Lungs and pleura: No pleural effusions or pneumothorax. Lungs are clear. Mediastinum: The aorta is prominent and tortuous. The cardiac contours are within normal limits. Bones and chest wall: No suspicious bony abnormalities. There is accentuated thoracic kyphosis. Age-appropriate degenerative changes are seen. Soft tissues appear unremarkable. IMPRESSION: Clear lungs, without focal infiltrates. Postoperative and degenerative changes are seen. Reviewed by: Robby Sotomayor MD on 01/02/2020 12:05 PM [email or web address] Approved by: Robby Sotomayor MD on 01/02/2020 12:05 PM SARBJIT Station ID: [id number]
[2020-01-02] MEDS ORDERED: SODIUM CHLORIDE 0.9% 1,000 ML IV STA (16:11)
[2020-01-02 16:17] LABS: BILIRUBIN,URINE NEGATIVE (NEGATIVE); GLUCOSE, URINE (UA) NEGATIVE (NEGATIVE); KETONES,URINE (UA) 15 mg/dL (NEGATIVE); LEUKOCYTE ESTERASE, URINE NEGATIVE (NEGATIVE); NITRITE,URINE NEGATIVE (NEGATIVE); OCCULT BLOOD,URINE NEGATIVE (NEGATIVE); PROTEIN,URINE NEGATIVE (NEGATIVE); UROBILINOGEN,URINE 0.2 (NORMAL) E.U./dL (NORMAL)
[2020-01-02 16:25] LABS: CLARITY,URINE CLEAR (CLEAR)
[2020-01-02 16:42] LABS: INR 1.1 (0.8-1.2); PT - PROTHROMBIN TIME 11.9 secs (9.9-12.6)
[2020-01-02 16:49] LABS: PARTIAL THROMBOPLASTIN TIME 24.8 secs (24.9-33.3)
[2020-01-02] MEDS ORDERED: ONDANSETRON 4 MG/2 ML VIAL IVP PRN (17:55)
[2020-01-02 18:13] LABS: VBG PH 7.354 (7.31-7.41)
[2020-01-02 18:14] LABS: VBG BASE EXCESS -8.3 mmol/L (-2 - +2); VBG PCO2 29.4 mmHg (41-51); VBG PO2 64.5 mmHg (25-47); VBG TOTAL CO2 16.9 mmol/L (24-29)
[2020-01-02] MEDS: D5NS W/20 MEQ KCL 1,000 ML IV SCH (18:54)
--- NOTE | 2020-01-02 19:19 | HISTORY & PHYSICAL EXAMINATION ---
Chief Complaint - Chief Complaint Chief Complaint: hypoensive and hypothermic History of Present Illness - Admitted From Admitted From:: [facility] ED - History Obtained From Records Reviewed: Yes History obtained from: ED physician's note and patient Exam Limitations: Initially altered mental status upon presentation - History of Present Illness HPI Comment/Other: The portion of this HPI was obtained from the ED physicians H&P because the patient was initially altered mentally upon presentation to the ED and not able to give an accurate history about her initial presentation. Per the ED physician's HPI: "74-year-old female with a history of alcoholism was found by her this morning less responsive than usual and cold.He got out the thermometer and measured her temperature at 91 and called the ambulance. The patient indicates that she has no specific symptoms and this is after she has been given D50. She arrived to the emergency department with a blood glucose of 32. She was immedia tely administered D50. She was found to be mildly delayed dehydrated on interrogation of the inferior vena cava and she was administered a banana bag intravenously as well. Her initial lactate was over 10. She has had this similar presentation with sepsis with both pneumonia and urinary tract inf ection. She denies any current symptoms. She does drink regularly and has had issues with shakes but not seizure or DT's with withdrawal. She was found with mini bottles in her purse this morning." At the time of my exam she was alert and oriented x4. She stated that the reason for her presentation to the ED with dehydration. She said she was diaphoretic and felt off balance. She was also significantly tremulous during my visit and tachycardic. She was brought to the ED by her . Currently she denies chest pain, dyspnea, abdominal pain, nausea, vomiting, fever or chills. She complains of a headache. Her last alcoholic drink was last night. She thinks she drinks a couple of beers daily but she is not very certain. 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 Her mother at age 56 of complications of alcoholism. She has 1 brother who is healthy and lives in [place]. She has 2 children who are completely healthy. Living arrangement: At home Living Situation: With spouse/s.o. Social History Notes: She drinks alcohol daily. It is estimated that she drinks about 4-6 beers a day with a few shots of gin every night. She started smoking in 1968 and stopped in 1974. She had a 1 pack/day history. She denied any recreational substance use. She is lived on [facility] for over 43 years. She used to be an company accountant. - POLST Patient has POLST: No Meds/Allgy - Home Medications Home Medications: Ambulatory Orders Medication Instructions Recorded Confirmed Amlodipine Besylate 5 mg PO DAILY 02/26/13 03/26/18 atenoloL [Atenolol] 50 mg PO QPM 02/26/13 03/26/18 Thiamine [Vitamin B-1] 100 mg PO DAILY tablet 01/24/17 03/26/18 Aspirin EC [Ecotrin] 325 mg PO DAILY #60 tablet 03/26/18 Atorvastatin Calcium [Lipitor] 80 mg PO DAILY #60 tablet 03/26/18 Cyanocobalamin (Vitamin B-12) 2,500 mcg PO DAILY 03/26/18 03/26/18 [Vitamin B-12] Folic Acid 1 mg PO DAILY #30 tablet 03/26/18 - Allergies Allergies/Adverse Reactions: Allergies Allergy/AdvReac Type Severity Reaction Status Date / Time lisinopril AdvReac Intermediate angioedema Verified 01/02/20 11:29 paroxetine HCl * [From Paxil] AdvReac Intermediate shakes/cold Verified 01/02/20 11:29 triamterene [Triamterene] AdvReac Intermediate low sodium Verified 01/02/20 11:29 and potassium levels Review of Systems - Constitutional Constitutional: denies: Fatigue, Fever, Chills - Eyes Eyes: denies: Pain - Ears, Nose & Throat Ears, Nose & Throat: denies: Ear pain - Cardiovascular Cariovascular: reports: Palpitations. denies: Chest pain, Edema, Lightheadedness, Syncope, Exertional dyspnea - Respiratory Respiratory: denies: Cough, Sputum production, Wheezing, SOB at rest, SOB with exertion - Gastrointestinal Gastrointestinal: denies: Abdominal pain, Abdominal distention, Nausea, Vomiting - Genitourinary Genitourinary: denies: Dysuria, Frequency, Urgency, Hematuria - Musculoskeletal Musculoskeletal: denies: Muscle pain, Back pain, Muscle aches - Integumentary Integumentary: denies: Rash, Pruritis, Lesions, Dryness - Neurological Neurological: reports: Headache. denies: General weakness, Focal weakness - Psychiatric Psychiatric: denies: Depression, Anxiety - Endocrine Endocrine: denies: Polyuria, Polydypsia - Hematologic/Lymphatic Hematologic/Lymphatic: denies: Anemia, Bruising, Petechiae Prior Level of Functionality: Patient is independent of activities of daily living Exam - Vital Signs Vital Signs: Vital Signs x48h Temp Pulse Pulse Resp BP BP Pulse Ox 01/02/20 19:00 136 H 15 150/75 H 97 01/02/20 18:40 37.5 C 123 H 21 125/89 H 99 01/02/20 18:13 129/75 01/02/20 18:00 105 H 18 100 01/02/20 17:30 131 H 20 100 01/02/20 17:00 102 H 17 100 01/02/20 16:30 100 15 100 01/02/20 16:00 118 H 22 96 01/02/20 15:30 99 17 126/73 100 01/02/20 15:00 104 H 17 120/70 99 01/02/20 14:30 93 14 135/69 H 100 01/02/20 14:00 92 14 122/70 100 01/02/20 13:41 34.5 C L 01/02/20 13:30 73 17 114/70 100 01/02/20 13:00 71 11 L 124/68 100 01/02/20 12:30 70 14 135/78 H 100 01/02/20 12:03 33.4 C L 74 16 122/66 100 01/02/20 11:26 34.7 C L 81 20 129/61 99 - Physical Exam General Appearance: positive: No acute distress, Alert, Other (Tremulous) Eyes Bilateral: positive: PERRL, EOMI ENT: positive: Dry mucous membranes Neck: positive: No JVD, Trachea midline Respiratory: positive: Chest non-tender, No respiratory distress, Breath sounds nml. negative: Wheezes, Rales, Rhonchi Cardiovascular: positive: Tachycardia Abdomen: positive: Non-tender, No organomegaly, Nml bowel sounds, No distention. negative: Guarding, Rebound Back: positive: Nml inspection Skin: positive: Color nml, No rash, Warm, Dry Extremities: positive: Non-tender, Full ROM, Nml appearance Neurologic/Psychiatric: positive: Oriented x3, Mood/affect nml, Other (Tremulous) Conclusion/Plan - Problem List (1) Dehydration Conclusion/Plan: Patient receiving dextrose 5+normal saline+20 mEq of potassium chloride at 100 mils per hour (2) Lactic acid acidosis Conclusion/Plan: Allergy undetermined. However This could be due to patient's alcohol abuse. Patient receiving IV hydration with D5 normal saline. Lactic acid level has steadily been decreasing. Initially it was 10, then improved to 7.8, then 4.2. We will continue to trend. (3) SIRS (systemic inflammatory response syndrome) Conclusion/Plan: Patient has lactic acidosis with lactic acid as high as 10. Patient's temperature was 38.3 Patient is tachycardic with a heart rate between 120s to 130s. Urine analysis is negative for infection. Chest x-ray was clear. Blood cultures are pending. We will continue to monitor patient for now. (4) Alcohol abuse Conclusion/Plan: CIWA protocol ordered (5) Hypoglycemia Conclusion/Plan: Patient receiving dextrose 5+normal saline+20 mEq of potassium chloride at 100 mils per hour (6) Hypertension Conclusion/Plan: Patient is on atenolol and amlodipine. Will resume once verified. (7) Hyperlipidemia Conclusion/Plan: Patient is on atorvastatin 80 mg nightly. - Lab Results Fish Bones: 01/02/20 20:41 01/02/20 11:43 Core Measures - Anticipated LOS I expect patient to be DC'd or transferred within 96 hours.: Yes - DVT/VTE - Prophylaxis VTE/DVT Device ordered at admit?: Yes VTE/DVT Prophylaxis med ordered at admit?: Yes
[2020-01-02] MEDS ORDERED: ATORVASTATIN 40 MG TABLET PO STA (19:35)
[2020-01-02] MEDS ORDERED: atenoloL 25 MG TABLET PO STA (19:35)
[2020-01-02] MEDS: LORazepam 2 MG/ML VIAL IVP PRN ×2 (20:01→22:18)
[2020-01-02] MEDS: SODIUM CHLORIDE FLUSH 0.9% 10 ML SYRINGE IVP PRN (20:01)
[2020-01-02 20:48] LABS: BASOPHILS % (AUTO) 0.6 %; EOSINOPHILS # (AUTO) 0.4 10^3/uL (0.0-0.7); HGB - HEMOGLOBIN 11.6 g/dL (12.0-16.0); LYMPHOCYTES # (AUTO) 0.3 10^3/uL (1.5-3.5); LYMPHOCYTES % (AUTO) 5.4 %; MEAN CORPUSCULAR HEMOGLOBIN 32.8 pg (27.0-31.0); MEAN CORPUSCULAR VOLUME 102.5 fL (81.0-99.0); MEAN PLATELET VOLUME 9.7 fL (7.9-10.8); MONOCYTES # (AUTO) 1.2 10^3/uL (0.0-1.0); MONOCYTES % (AUTO) 18.2 %; NEUTROPHILS # (AUTO) 4.4 10^3/uL (1.5-6.6); NEUTROPHILS % (AUTO) 68.6 %; PLT - PLATELET COUNT 195 10^3/uL (130-450); RED BLOOD COUNT 3.54 10^6/uL (4.20-5.40); RED CELL DISTRIBUTION WIDTH 14.1 % (12.0-15.0); WHITE BLOOD COUNT 6.3 x10^3/uL (4.8-10.8)
[2020-01-02] MEDS: SODIUM CHLORIDE FLUSH 0.9% 10 ML SYRINGE IVP SCH (22:18)
[2020-01-02] MEDS ORDERED: ACETAMINOPHEN 325 MG TABLET PO PRN (23:09)
[2020-01-03] MEDS: D5NS W/20 MEQ KCL 1,000 ML IV SCH (04:30)
[2020-01-03 05:10] LABS: ALBUMIN 2.9 g/dL (3.2-5.5); ALBUMIN/GLOBULIN RATIO 1.1 (1.0-2.2); CALCIUM 7.8 mg/dL (8.5-10.3); CREATININE 0.7 mg/dL (0.4-1.0); MAGNESIUM 1.7 mg/dL (1.7-2.8); PHOSPHORUS 2.7 mg/dL (2.5-4.6); TOTAL PROTEIN 5.6 g/dL (6.7-8.2); VBG BASE EXCESS -1.5 mmol/L (-2 - +2); VBG PCO2 33.8 mmHg (41-51); VBG PH 7.435 (7.31-7.41); VBG PO2 65.6 mmHg (25-47); VBG TOTAL CO2 23.2 mmol/L (24-29)
[2020-01-03 05:17] LABS: BASOPHILS % (AUTO) 0.6 %; HGB - HEMOGLOBIN 10.2 g/dL (12.0-16.0); LYMPHOCYTES # (AUTO) 0.7 10^3/uL (1.5-3.5); LYMPHOCYTES % (AUTO) 13.3 %; MEAN CORPUSCULAR HEMOGLOBIN 32.3 pg (27.0-31.0); MEAN CORPUSCULAR HGB CONC 32.2 g/dL (32.0-36.0); MEAN CORPUSCULAR VOLUME 100.3 fL (81.0-99.0); MEAN PLATELET VOLUME 9.9 fL (7.9-10.8); MONOCYTES % (AUTO) 18.4 %; NEUTROPHILS # (AUTO) 3.5 10^3/uL (1.5-6.6); NEUTROPHILS % (AUTO) 67.3 %; PLT - PLATELET COUNT 181 10^3/uL (130-450); RED BLOOD COUNT 3.16 10^6/uL (4.20-5.40); RED CELL DISTRIBUTION WIDTH 14.2 % (12.0-15.0); WHITE BLOOD COUNT 5.2 x10^3/uL (4.8-10.8)
[2020-01-03] MEDS: PANTOPRAZOLE 40 MG VIAL IVP SCH (06:09)
[2020-01-03] MEDS: SODIUM CHLORIDE FLUSH 0.9% 10 ML SYRINGE IVP PRN (06:09)
[2020-01-03] MEDS: MULTIVITAMIN 10 ML, THIAMINE INJ 100 MG, FOLIC ACID INJ 1 MG in SODIUM CHLORIDE 0.9% 1,... IV SCH (09:00)
[2020-01-03] MEDS: SODIUM CHLORIDE FLUSH 0.9% 10 ML SYRINGE IVP SCH ×2 (09:00→18:40)
--- NOTE | 2020-01-03 10:28 | PROVIDER PROGRESS NOTE ---
Assessment/Plan - Problem List (1) SIRS (systemic inflammatory response syndrome) Assessment/Plan: Had hypothermia, hypoglycemia, elevated lactic acid level severely. There is no source of obvious infection at the time of admission, despite that in the past her urinary tract had infection and was considered to be a source. Acute alcoholic ketoacidosis may have been adding to the lactic acid level. Today she has grown positive blood cultures, which is probably the source of the current SIRS. Will start empiric IV antibiotics. Continue with IV fluids. (2) Gram-positive bacteremia Assessment/Plan: Gram-positive cocci in pairs and chains have been identified in her blood culture. We will start empiric iv Vancomycin. She cannot be discharged today. Await identification and sensitivities of this gram-positive bacteria and will try to locate its source and will need to finish a course of treatment with antibiotics. (3) Hypoglycemia Assessment/Plan: Resolved Will advance diet Continue iv with D% and routine POC glu checks (4) Alcohol abuse Assessment/Plan: She drinks beer and shots of gin. She was tremulous at presentation. A CIWA protocol with prn Ativan iv pushes was ordered at admission. Since she will now be here for 48 hours to await the identification of gram-positive bacteremia and treatment of this, will start Librium scheduled and will order alcohol with meals, to prevent DTs. Banana bag and IV saline plus D5 was started at admission. We will start oral daily thiamine and vitamin and advance gher diet. Social work consult will be requested regarding alcohol abuse. (5) Elevated LFTs Assessment/Plan: AST greater than ALT at presentation and all liver tests elevated. This is already improved with 1 day of abstinence. Follow LFTs daily. (6) Hx of essential hypertension Assessment/Plan: She was on amlodipine and metoprolol. They have not yet been resumed because of her "soft" blood pressure and dehydration. We will resume these when she is hypertensive (7) Hyperlipidemia Assessment/Plan: She was prescribed to get atorvastatin. We will resume this when her LFTs are not abnormal (8) Lactic acid acidosis Assessment/Plan: Resolved (9) Hypothermia Qualifiers: Encounter type: subsequent encounter Qualified Code(s): T68.XXXD - Hypothermia, subsequent encounter Assessment/Plan: Resolved (10) Altered mental status Assessment/Plan: Resolved; she is awake, alert, talking, hungry Continue IV fluids, start IV antibiotics, will advance her diet - Current Meds Current Meds: Current Medications Generic Name Dose Route Start Last Admin Trade Name Galdino PRN Reason Stop Dose Admin Acetaminophen 650 mg 01/02/20 23:09 01/02/20 23:32 Tylenol PO 650 mg Q4HR PRN Administration Pain or Fever > 38C (100.4F) Potassium Chloride/Dextrose/Sod Cl 1,000 mls @ 100 mls/hr 01/02/20 18:00 01/03/20 09:00 IV 0 mls/hr .Q10H GIULIANO Infusion Multivitamins 10 ml/ Thiamine 1,011.2 mls @ 100 mls/hr 01/03/20 09:00 01/03/20 09:00 HCl 100 mg/ Folic Acid 1 mg/ IV 100 mls/hr Sodium Chloride DAILY GIULIANO Administration Lorazepam 1 mg 01/02/20 19:37 01/02/20 22:18 Ativan Inj (Vial) IVP 1 mg Q30M PRN Administration CIWA >8 Protocol Ondansetron HCl 4 mg 01/02/20 17:55 01/02/20 20:10 Zofran Inj IVP 4 mg Q6HR PRN Administration Nausea / Vomiting Pantoprazole Sodium 40 mg 01/03/20 07:00 01/03/20 06:09 Protonix IVP 40 mg QDAC GIULIANO Administration Sodium Chloride 10 ml 01/03/20 01:00 01/03/20 09:00 Normal Saline Flush 0.9% IVP 10 ml 0100,0900,1700 GIULIANO Administration Sodium Chloride 10 ml 01/02/20 17:55 01/03/20 06:09 Normal Saline Flush 0.9% IVP 10 ml PRN PRN Administration NEEDED PER PROVIDER ORDERS - Lab Result Fish Bone Diagrams: 01/03/20 04:25 01/03/20 04:25 - Additional Planning My Orders: My Active Orders 01/02/20 17:55 Activity Orders [RC] Q2HR Blood Glucose POC [RC] 0000,0600,1200,1800 Daily Weight [RC] 0600 IO [RC] Q1HR IV Insert [RC] ONCE Initiate Bowel Care Protocol [RC] QSHIFT Initiate ICU Electrolyte Prot. [RC] .protocol Initiate Line Care Protocol [RC] .protocol Initiate Personal Care Protoco [RC] .protocol Nutrition Consult [CONS] Routine Ondansetron Inj [Zofran Inj] 4 mg IVP Q6HR PRN Sodium Chloride Flush 0.9% [Normal Saline Flush 0.9%] 10 ml IVP PRN PRN Code Status [OTHERS] Routine Condition of Patient [OTHERS] Routine DVT Prophylaxis [OTHERS] Routine 01/02/20 17:58 Turn, Cough and Deep Breathe [RC] Routine 01/02/20 17:59 Oral Care - Nursing [RC] Routine Oxygen Therapy [RC] .PRN SCDs [RC] QSHIFT Telemetry- [RC] Q4HR Turn and Reposition [RC] Routine 01/02/20 18:00 Initiate Line Care Protocol [RC] QSHIFT Warming Unit [RC] PRN CUL, URINE [RM] Routine D5ns W/20 Meq KCl 1,000 ml IV 100 mls/hr 01/03/20 01:00 Sodium Chloride Flush 0.9% [Normal Saline Flush 0.9%] 10 ml IVP 0100,0900,1700 01/03/20 Breakfast Dysphagia Puree Diet [DIET] 01/03/20 07:00 Pantoprazole [Protonix] 40 mg IVP QDAC 01/03/20 09:00 Multivitamin [Infuvite] 10 ml Thiamine Inj [Vitamin B-1 Inj] 100 mg Folic Acid Inj 1 mg Sodium Chloride 0.9% [Normal Saline 0.9%] 1,000 ml IV DAILY 01/03/20 10:25 Vancomycin: Pharmacy To Dose [Vancomycin-Pharmacy To Dose] 1 each ONCE PRN 01/03/20 10:30 chlordiazePOXIDE [Librium] 12.5 mg PO Q6HR 01/03/20 Lunch DIET [Soft Mechanical Diet] [DIET] 01/03/20 12:00 Beer 355 ml PO TIDWM Subjective - Subjective Patient Reports: Resting Comfortably Objective Vital Signs: Vital Signs - 24 hr 01/02/20 01/02/20 01/02/20 11:26 12:03 12:30 Temperature 34.7 C L 33.4 C L Heart Rate 81 74 70 Heart Rate [ Monitoring electrodes] Respiratory 20 16 14 Rate Blood Pressure 129/61 122/66 135/78 H Blood Pressure [Left Brachial artery] O2 Saturation 99 100 100 09/26/20 09/26/20 09/26/20 13:00 13:30 13:41 Temperature 34.5 C L Heart Rate 71 73 Heart Rate [ Monitoring electrodes] Respiratory 11 L 17 Rate Blood Pressure 124/68 114/70 Blood Pressure [Left Brachial artery] O2 Saturation 100 100 01/02/20 01/02/20 01/02/20 14:00 14:30 15:00 Temperature Heart Rate 92 93 104 H Heart Rate [ Monitoring electrodes] Respiratory 14 14 17 Rate Blood Pressure 122/70 135/69 H 120/70 Blood Pressure [Left Brachial artery] O2 Saturation 100 100 99 01/02/20 01/02/20 01/02/20 15:30 16:00 16:30 Temperature Heart Rate 99 118 H 100 Heart Rate [ Monitoring electrodes] Respiratory 17 22 15 Rate Blood Pressure 126/73 Blood Pressure [Left Brachial artery] O2 Saturation 100 96 100 01/02/20 01/02/20 01/02/20 17:00 17:30 18:00 Temperature Heart Rate 102 H 131 H 105 H Heart Rate [ Monitoring electrodes] Respiratory 17 20 18 Rate Blood Pressure Blood Pressure [Left Brachial artery] O2 Saturation 100 100 100 01/02/20 01/02/20 01/02/20 18:13 18:40 19:00 Temperature 37.5 C Heart Rate Heart Rate [ 123 H 136 H Monitoring electrodes] Respiratory 21 15 Rate Blood Pressure 129/75 Blood Pressure 125/89 H 150/75 H [Left Brachial artery] O2 Saturation 99 97 01/02/20 01/02/20 01/02/20 20:00 21:00 22:00 Temperature Heart Rate Heart Rate [ 115 H 120 H 127 H Monitoring electrodes] Respiratory 20 16 18 Rate Blood Pressure Blood Pressure 141/88 H 131/76 H 117/71 [Left Brachial artery] O2 Saturation 99 96 96 01/02/20 01/03/20 01/03/20 23:00 00:24 01:00 Temperature 38.3 C H 37.7 C H Heart Rate Heart Rate [ 120 H 105 H 81 Monitoring electrodes] Respiratory 22 19 21 Rate Blood Pressure Blood Pressure 110/60 111/58 L 107/49 L [Left Brachial artery] O2 Saturation 92 95 92 01/03/20 01/03/20 01/03/20 02:07 03:05 04:00 Temperature 37.5 C Heart Rate Heart Rate [ 76 76 76 Monitoring electrodes] Respiratory 17 20 21 Rate Blood Pressure Blood Pressure 96/52 L 106/55 L 102/47 L [Left Brachial artery] O2 Saturation 98 95 94 01/03/20 01/03/20 01/03/20 05:00 06:00 07:00 Temperature 37.6 C H Heart Rate Heart Rate [ 82 68 72 Monitoring electrodes] Respiratory 23 14 13 Rate Blood Pressure Blood Pressure 93/54 L 112/61 103/57 L [Left Brachial artery] O2 Saturation 93 94 97 01/03/20 01/03/20 01/03/20 08:00 09:00 10:00 Temperature 37.3 C Heart Rate Heart Rate [ 73 86 79 Monitoring electrodes] Respiratory 21 19 21 Rate Blood Pressure Blood Pressure 111/61 117/64 113/61 [Left Brachial artery] O2 Saturation 97 99 97 Oxygen O2 Source Room air I&O (Last 24 Hrs): Intake and Output Totals x24h 01/01/20 01/02/20 01/03/20 23:59 23:59 23:59 Intake Total 2135.2 2170.000 Output Total 400 400 Balance 1735.2 1770.000 General: Alert, Oriented x3 HEENT: Mucous membr. moist/pink Neck: Supple Neuro: Alert, Non Focal Cardiovascular: No murmurs Respiratory: No respiratory distress Abdomen: Soft Extremities: No edema - Results Results: Laboratory Results WBC 5.2 x10^3/uL (4.8-10.8) 01/03/20 04:25 RBC 3.16 10^6/uL (4.20-5.40) L 01/03/20 04:25 Hgb 10.2 g/dL (12.0-16.0) L 01/03/20 04:25 Hct 31.7 % (37.0-47.0) L 01/03/20 04:25 MCV 100.3 fL (81.0-99.0) H 01/03/20 04:25 MCH 32.3 pg (27.0-31.0) H 01/03/20 04:25 MCHC 32.2 g/dL (32.0-36.0) 01/03/20 04:25 RDW 14.2 % (12.0-15.0) 01/03/20 04:25 Plt Count 181 10^3/uL (130-450) 01/03/20 04:25 MPV 9.9 fL (7.9-10.8) 01/03/20 04:25 Neut # (Auto) 3.5 10^3/uL (1.5-6.6) 01/03/20 04:25 Lymph # (Auto) 0.7 10^3/uL (1.5-3.5) L 01/03/20 04:25 [place] # (Auto) 1.0 10^3/uL (0.0-1.0) 01/03/20 04:25 Eos # (Auto) 0.0 10^3/uL (0.0-0.7) 01/03/20 04:25 Baso # (Auto) 0.0 10^3/uL (0.0-0.1) 01/03/20 04:25 Absolute Nucleated RBC 0.00 x10^3/uL 01/03/20 04:25 Nucleated RBC % 0.0 /100WBC 01/03/20 04:25 PT 11.9 secs (9.9-12.6) 01/02/20 16:29 INR 1.1 (0.8-1.2) 01/02/20 16:29 APTT 24.8 secs (24.9-33.3) L 01/02/20 16:29 VBG pH 7.435 (7.31-7.41) H 01/03/20 04:25 VBG pCO2 33.8 mmHg (41-51) L 01/03/20 04:25 VBG pO2 65.6 mmHg (25-47) H 01/03/20 04:25 VBG HCO3 22.2 mmol/L (23-28) L 01/03/20 04:25 VBG Total CO2 23.2 mmol/L (24-29) L 01/03/20 04:25 VBG O2 Saturation 93.5 % (60-80) H 01/03/20 04:25 VBG Base Excess -1.5 mmol/L (-2 - +2) 01/03/20 04:25 Sodium 137 mmol/L (135-145) 01/03/20 04:25 Potassium 4.2 mmol/L (3.5-5.0) 01/03/20 04:25 Chloride 105 mmol/L (101-111) 01/03/20 04:25 Carbon Dioxide 23 mmol/L (21-32) 01/03/20 04:25 Anion Gap 9.0 (6-13) 01/03/20 04:25 BUN 17 mg/dL (6-20) 01/03/20 04:25 Creatinine 0.7 mg/dL (0.4-1.0) 01/03/20 04:25 Estimated GFR (MDRD) 82 (>89) L 01/03/20 04:25 Glucose 169 mg/dL (70-100) H 01/03/20 04:25 POC Whole Bld Glucose 153 mg/dL (70 - 100) H 01/03/20 04:24 Lactic Acid 0.7 mmol/L (0.5-2.2) 01/03/20 04:25 Calcium 7.8 mg/dL (8.5-10.3) L 01/03/20 04:25 Phosphorus 2.7 mg/dL (2.5-4.6) 01/03/20 04:25 Magnesium 1.7 mg/dL (1.7-2.8) 01/03/20 04:25 Total Bilirubin 1.0 mg/dL (0.2-1.0) 01/03/20 04:25 AST 82 IU/L (10-42) H 01/03/20 04:25 ALT 42 IU/L (10-60) 01/03/20 04:25 Alkaline Phosphatase 55 IU/L (42-121) 01/03/20 04:25 Total Protein 5.6 g/dL (6.7-8.2) L 01/03/20 04:25 Albumin 2.9 g/dL (3.2-5.5) L 01/03/20 04:25 Globulin 2.7 g/dL (2.1-4.2) 01/03/20 04:25 Albumin/Globulin Ratio 1.1 (1.0-2.2) 01/03/20 04:25 Lipase 34 U/L (22-51) 01/02/20 11:43 Urine Color YELLOW 01/02/20 16:04 Urine Clarity CLEAR (CLEAR) 01/02/20 16:04 Urine pH 5.0 PH (5.0-7.5) 01/02/20 16:04 Ur Specific [place] >=1.030 (1.002-1.030) H 01/02/20 16:04 Urine Protein NEGATIVE mg/dL (NEGATIVE) 01/02/20 16:04 Urine Glucose (UA) NEGATIVE mg/dL (NEGATIVE) 01/02/20 16:04 Urine Ketones 15 mg/dL (NEGATIVE) H 01/02/20 16:04 Urine Occult Blood NEGATIVE (NEGATIVE) 01/02/20 16:04 Urine Nitrite NEGATIVE (NEGATIVE) 01/02/20 16:04 Urine Bilirubin NEGATIVE (NEGATIVE) 01/02/20 16:04 Urine Urobilinogen 0.2 (NORMAL) E.U./dL (NORMAL) 01/02/20 16:04 Ur Leukocyte Esterase NEGATIVE (NEGATIVE) 01/02/20 16:04 Ur Microscopic Review NOT INDICATED 01/02/20 16:04 Urine Culture Comments NOT INDICATED 01/02/20 16:04 Nasal Screen MRSA (PCR) NEGATIVE (NEGATIVE) 01/02/20 18:35 Ethyl Alcohol 217.7 mg/dL 01/02/20 11:43 Serum Ketones NEGATIVE (NEGATIVE) 01/02/20 11:34 - Procedures Procedures: Procedures REPOSITION RIGHT HUMERAL SHAFT WITH INT FIX, OPEN APPROACH (08/22/15)
[2020-01-03] MEDS ORDERED: chlordiazePOXIDE 25 MG CAPSULE PO SCH (10:30)
--- NOTE | 2020-01-03 10:48 | PHARMACY PROGRESS NOTE ---
- Therapy Status Vancomycin regimen day #: 1 (1.5 GM LOADING DOSE, THEN 750MG Q12H) Therapy status: Awaiting steady state Basis for treatment: Empirical Treatment indication: BACTEREMIA: GRAM + COCCI IN PAIRS/CHAINS - AWAITING SPECIES Trough goal: 15-20 - SOHAIL Risk Risk level for Acute Kidney Injury: Moderate Acute Kidney Injury risk factors: Goal trough >15, Admission to ICU - Monitoring and Recommendation Clinical response to treatment: I&O Previous 24 hours 01/01/20 01/02/20 01/03/20 23:59 23:59 23:59 Intake Total 2135.2 2170.000 Output Total 400 400 Balance 1735.2 1770.000 Lab Results 01/03/20 01/02/20 04:25 11:43 BUN 17 23 H Creatinine 0.7 1.1 H Estimated GFR (MDRD) 82 L 49 L Cultures 01/02/20 16:04 Urine, Ureter - Clean Catch Midstream Urine Culture - Preliminary CULTURE IN PROGRESS. RESULTS TO FOLLOW. 01/02/20 11:43 Blood Blood Culture - Preliminary Monitoring plan: Daily serum creatinine Next trough due prior to maintenance dose #: 4 Next trough due (date/time): 01/05/20 @ 1030 Areas for additional monitoring: Therapy de-escalation based on culture results, C. difficile infection risk reduction Pharmacy recommendation: Continue current regime
[2020-01-03] MEDS ORDERED: chlordiazePOXIDE 5 MG CAPSULE PO SCH (10:53)
[2020-01-03] MEDS ORDERED: BEER 355 ML BOTTLE PO SCH (11:00)
[2020-01-03] MEDS ORDERED: VANCOMYCIN INJ 1.5 GM in SODIUM CHLORIDE 0.9% 500 ML IV SCH (11:00)
[2020-01-03] MEDS: BEER 355 ML BOTTLE PO SCH ×2 (12:10→18:40)
[2020-01-03] MEDS: chlordiazePOXIDE 5 MG CAPSULE PO SCH (19:06)
[2020-01-03] MEDS: VANCOMYCIN INJ 750 MG in SODIUM CHLORIDE 0.9% 250 ML IV SCH (22:50)
[2020-01-03] MEDS ORDERED: SODIUM CHLORIDE 0.9% IV SCH (23:00)
[2020-01-03] MEDS ORDERED: VANCOMYCIN IV SCH (23:00)
[2020-01-04] MEDS: chlordiazePOXIDE 5 MG CAPSULE PO SCH ×4 (00:23→17:31)
[2020-01-04] MEDS: D5NS W/20 MEQ KCL 1,000 ML IV SCH ×3 (00:23→22:40)
[2020-01-04] MEDS: SODIUM CHLORIDE FLUSH 0.9% 10 ML SYRINGE IVP SCH ×4 (00:24→17:31)
[2020-01-04] MEDS: PANTOPRAZOLE 40 MG VIAL IVP SCH (06:53)
[2020-01-04] MEDS: SODIUM CHLORIDE FLUSH 0.9% 10 ML SYRINGE IVP PRN (06:53)
[2020-01-04] MEDS: BEER 355 ML BOTTLE PO SCH ×3 (08:00→17:31)
[2020-01-04] MEDS: VANCOMYCIN INJ 750 MG in SODIUM CHLORIDE 0.9% 250 ML IV SCH (11:39)
[2020-01-04] MEDS: MULTIVITAMIN 10 ML, THIAMINE INJ 100 MG, FOLIC ACID INJ 1 MG in SODIUM CHLORIDE 0.9% 1,... IV SCH (12:59)
--- NOTE | 2020-01-04 19:23 | PROVIDER PROGRESS NOTE ---
Assessment/Plan - Problem List (1) Gram-positive bacteremia Assessment/Plan: Patient's blood culture grew gram-positive cocci in pairs and chains yesterday. Patient was started on vancomycin empirically. Awaiting sensitivities on cultures. (2) Dehydration Assessment/Plan: Resolved. Patient has been adequately hydrated over the past couple of days. In fact she complains of increased urination. She has adequate oral intake of fluids. (3) Lactic acid acidosis Assessment/Plan: Resolved (4) SIRS (systemic inflammatory response syndrome) Assessment/Plan: Blood cultures subsequently grew gram-positive bacteremia (5) Alcohol abuse Assessment/Plan: Patient was initially placed on CIWA protocol. However due to the fact that sensitivities on the gram-positive blood cultures pending, patient was ordered alcohol with meals. She is also on thiamine and vitamins daily. She tolerated a regular diet. (6) Hypoglycemia Assessment/Plan: Resolved. Patient on a regular diet and tolerating it well. (7) Hypertension Assessment/Plan: Currently normotensive. We will resume patient's amlodipine and atenolol. (8) Hyperlipidemia Assessment/Plan: On atorvastatin 80 mg p.o. daily - Current Meds Current Meds: Current Medications Generic Name Dose Route Start Last Admin Trade Name Freq PRN Reason Stop Dose Admin Acetaminophen 650 mg 01/02/20 23:09 01/02/20 23:32 Tylenol PO 650 mg Q4HR PRN Administration Pain or Fever > 38C (100.4F) Chlordiazepoxide HCl 15 mg 01/03/20 18:00 01/04/20 17:31 Librium PO Not Given Q6HR GIULIANO Potassium Chloride/Dextrose/Sod Cl 1,000 mls @ 100 mls/hr 01/02/20 18:00 01/04/20 11:54 IV Not Given .Q10H GIULIANO Multivitamins 10 ml/ Thiamine 1,011.2 mls @ 100 mls/hr 01/03/20 09:00 01/04/20 12:59 HCl 100 mg/ Folic Acid 1 mg/ IV 100 mls/hr Sodium Chloride DAILY GIULIANO Administration Lorazepam 1 mg 01/02/20 19:37 01/02/20 22:18 Ativan Inj (Vial) IVP 1 mg Q30M PRN Administration CIWA >8 Protocol Ondansetron HCl 4 mg 01/02/20 17:55 01/02/20 20:10 Zofran Inj IVP 4 mg Q6HR PRN Administration Nausea / Vomiting Pantoprazole Sodium 40 mg 01/03/20 07:00 01/04/20 06:53 Protonix IVP 40 mg QDAC GIULIANO Administration Sodium Chloride 10 ml 01/03/20 01:00 01/04/20 17:31 Normal Saline Flush 0.9% IVP 10 ml 0100,0900,1700 GIULIANO Administration Sodium Chloride 10 ml 01/02/20 17:55 01/04/20 06:53 Normal Saline Flush 0.9% IVP 10 ml PRN PRN Administration NEEDED PER PROVIDER ORDERS - Lab Result Fish Bone Diagrams: 01/03/20 04:25 01/03/20 04:25 Subjective - Subjective Patient Reports: Other (Patient seen and examined today. She was resting comfortably in bed at the time of exam. She denied any complaints. She was alert and oriented x3 and appeared very calm. She was also drinking a can of beer. She tolerated all 3 meals of the day well.) Objective Vital Signs: Vital Signs - 24 hr 01/03/20 01/03/20 01/04/20 21:00 23:45 04:04 Temperature 37.1 C 36.9 C 36.7 C Heart Rate [ 70 72 76 Monitoring electrodes] Respiratory 18 16 16 Rate Blood Pressure 131/62 H [Left Brachial artery] Blood Pressure 132/67 H 127/73 [Right Brachial artery] O2 Saturation 99 94 98 01/04/20 01/04/20 01/04/20 08:08 12:10 16:45 Temperature 37.0 C 36.8 C 36.8 C Heart Rate [ 78 72 81 Monitoring electrodes] Respiratory 19 18 18 Rate Blood Pressure 137/67 H [Left Brachial artery] Blood Pressure 132/76 H 139/72 H [Right Brachial artery] O2 Saturation 99 97 97 Oxygen O2 Source Room air I&O (Last 24 Hrs): Intake and Output Totals x24h 01/02/20 01/03/20 01/04/20 23:59 23:59 23:59 Intake Total 2135.2 4521.200 2550 Output Total 496 424 4442 Balance 1735.2 4121.200 950 General: Alert, No acute distress HEENT: PERRLA, EOMI Neck: No JVD Neuro: Alert, Oriented Times 3 Cardiovascular: Regular rate Respiratory: Chest non-tender, No respiratory distress, Breath sounds nml Abdomen: Normal bowel sounds Extremities: No edema Skin: No rashes - Results Results: Laboratory Results WBC 5.2 x10^3/uL (4.8-10.8) 01/03/20 04:25 RBC 3.16 10^6/uL (4.20-5.40) L 01/03/20 04:25 Hgb 10.2 g/dL (12.0-16.0) L 01/03/20 04:25 Hct 31.7 % (37.0-47.0) L 01/03/20 04:25 MCV 100.3 fL (81.0-99.0) H 01/03/20 04:25 MCH 32.3 pg (27.0-31.0) H 01/03/20 04:25 MCHC 32.2 g/dL (32.0-36.0) 01/03/20 04:25 RDW 14.2 % (12.0-15.0) 01/03/20 04:25 Plt Count 181 10^3/uL (130-450) 01/03/20 04:25 MPV 9.9 fL (7.9-10.8) 01/03/20 04:25 Neut # (Auto) 3.5 10^3/uL (1.5-6.6) 01/03/20 04:25 Lymph # (Auto) 0.7 10^3/uL (1.5-3.5) L 01/03/20 04:25 [place] # (Auto) 1.0 10^3/uL (0.0-1.0) 01/03/20 04:25 Eos # (Auto) 0.0 10^3/uL (0.0-0.7) 01/03/20 04:25 Baso # (Auto) 0.0 10^3/uL (0.0-0.1) 01/03/20 04:25 Absolute Nucleated RBC 0.00 x10^3/uL 01/03/20 04:25 Nucleated RBC % 0.0 /100WBC 01/03/20 04:25 PT 11.9 secs (9.9-12.6) 01/02/20 16:29 INR 1.1 (0.8-1.2) 01/02/20 16:29 APTT 24.8 secs (24.9-33.3) L 01/02/20 16:29 VBG pH 7.435 (7.31-7.41) H 01/03/20 04:25 VBG pCO2 33.8 mmHg (41-51) L 01/03/20 04:25 VBG pO2 65.6 mmHg (25-47) H 01/03/20 04:25 VBG HCO3 22.2 mmol/L (23-28) L 01/03/20 04:25 VBG Total CO2 23.2 mmol/L (24-29) L 01/03/20 04:25 VBG O2 Saturation 93.5 % (60-80) H 01/03/20 04:25 VBG Base Excess -1.5 mmol/L (-2 - +2) 01/03/20 04:25 Sodium 137 mmol/L (135-145) 01/03/20 04:25 Potassium 4.2 mmol/L (3.5-5.0) 01/03/20 04:25 Chloride 105 mmol/L (101-111) 01/03/20 04:25 Carbon Dioxide 23 mmol/L (21-32) 01/03/20 04:25 Anion Gap 9.0 (6-13) 01/03/20 04:25 BUN 17 mg/dL (6-20) 01/03/20 04:25 Creatinine 0.7 mg/dL (0.4-1.0) 01/03/20 04:25 Estimated GFR (MDRD) 82 (>89) L 01/03/20 04:25 Glucose 169 mg/dL (70-100) H 01/03/20 04:25 POC Whole Bld Glucose 100 mg/dL (70 - 100) 01/04/20 16:56 Lactic Acid 0.7 mmol/L (0.5-2.2) 01/03/20 04:25 Calcium 7.8 mg/dL (8.5-10.3) L 01/03/20 04:25 Phosphorus 2.7 mg/dL (2.5-4.6) 01/03/20 04:25 Magnesium 1.7 mg/dL (1.7-2.8) 01/03/20 04:25 Total Bilirubin 1.0 mg/dL (0.2-1.0) 01/03/20 04:25 AST 82 IU/L (10-42) H 01/03/20 04:25 ALT 42 IU/L (10-60) 01/03/20 04:25 Alkaline Phosphatase 55 IU/L (42-121) 01/03/20 04:25 Total Protein 5.6 g/dL (6.7-8.2) L 01/03/20 04:25 Albumin 2.9 g/dL (3.2-5.5) L 01/03/20 04:25 Globulin 2.7 g/dL (2.1-4.2) 01/03/20 04:25 Albumin/Globulin Ratio 1.1 (1.0-2.2) 01/03/20 04:25 Lipase 34 U/L (22-51) 01/02/20 11:43 Urine Color YELLOW 01/02/20 16:04 Urine Clarity CLEAR (CLEAR) 01/02/20 16:04 Urine pH 5.0 PH (5.0-7.5) 01/02/20 16:04 Ur Specific [place] >=1.030 (1.002-1.030) H 01/02/20 16:04 Urine Protein NEGATIVE mg/dL (NEGATIVE) 01/02/20 16:04 Urine Glucose (UA) NEGATIVE mg/dL (NEGATIVE) 01/02/20 16:04 Urine Ketones 15 mg/dL (NEGATIVE) H 01/02/20 16:04 Urine Occult Blood NEGATIVE (NEGATIVE) 01/02/20 16:04 Urine Nitrite NEGATIVE (NEGATIVE) 01/02/20 16:04 Urine Bilirubin NEGATIVE (NEGATIVE) 01/02/20 16:04 Urine Urobilinogen 0.2 (NORMAL) E.U./dL (NORMAL) 01/02/20 16:04 Ur Leukocyte Esterase NEGATIVE (NEGATIVE) 01/02/20 16:04 Ur Microscopic Review NOT INDICATED 01/02/20 16:04 Urine Culture Comments NOT INDICATED 01/02/20 16:04 Nasal Screen MRSA (PCR) NEGATIVE (NEGATIVE) 01/02/20 18:35 Ethyl Alcohol 217.7 mg/dL 01/02/20 11:43 Serum Ketones NEGATIVE (NEGATIVE) 01/02/20 11:34 - Procedures Procedures: Procedures REPOSITION RIGHT HUMERAL SHAFT WITH INT FIX, OPEN APPROACH (08/22/15) ABX Reporting Has patient been on IV antibiotics over the past 48 hours?: Yes
[2020-01-04] MEDS ORDERED: VANCOMYCIN INJ 750 MG in SODIUM CHLORIDE 0.9% 250 ML IV SCH (23:00)
[2020-01-05] MEDS: chlordiazePOXIDE 5 MG CAPSULE PO SCH ×4 (00:59→17:35)
[2020-01-05] MEDS: SODIUM CHLORIDE FLUSH 0.9% 10 ML SYRINGE IVP SCH ×3 (01:02→17:36)
[2020-01-05] MEDS: PANTOPRAZOLE 40 MG VIAL IVP SCH (06:17)
[2020-01-05] MEDS: SODIUM CHLORIDE FLUSH 0.9% 10 ML SYRINGE IVP PRN ×2 (06:17→10:01)
[2020-01-05] MEDS ORDERED: BEER 480 ML CAN PO SCH (08:00)
[2020-01-05] MEDS: atenoloL 25 MG TABLET PO SCH (08:12)
[2020-01-05] MEDS: amLODIPine 5 MG TABLET PO SCH (08:12)
[2020-01-05 08:37] LABS: BASOPHILS # (AUTO) 0.1 10^3/uL (0.0-0.1); BASOPHILS % (AUTO) 0.9 %; EOSINOPHILS # (AUTO) 0.2 10^3/uL (0.0-0.7); EOSINOPHILS % (AUTO) 2.8 %; HGB - HEMOGLOBIN 12.1 g/dL (12.0-16.0); LYMPHOCYTES # (AUTO) 1.2 10^3/uL (1.5-3.5); LYMPHOCYTES % (AUTO) 21.8 %; MEAN CORPUSCULAR HEMOGLOBIN 33.2 pg (27.0-31.0); MEAN CORPUSCULAR HGB CONC 32.8 g/dL (32.0-36.0); MEAN CORPUSCULAR VOLUME 101.4 fL (81.0-99.0); MEAN PLATELET VOLUME 9.6 fL (7.9-10.8); MONOCYTES # (AUTO) 0.6 10^3/uL (0.0-1.0); MONOCYTES % (AUTO) 10.7 %; NEUTROPHILS # (AUTO) 3.6 10^3/uL (1.5-6.6); NEUTROPHILS % (AUTO) 63.4 %; PLT - PLATELET COUNT 186 10^3/uL (130-450); RED BLOOD COUNT 3.64 10^6/uL (4.20-5.40); RED CELL DISTRIBUTION WIDTH 13.8 % (12.0-15.0); WHITE BLOOD COUNT 5.6 x10^3/uL (4.8-10.8)
[2020-01-05 08:50] LABS: VANCOMYCIN,TROUGH 15.1 ug/mL (10.0-20.0)
[2020-01-05 08:53] LABS: CALCIUM 8.3 mg/dL (8.5-10.3); CREATININE 0.7 mg/dL (0.4-1.0); MAGNESIUM 1.1 mg/dL (1.7-2.8); PHOSPHORUS 2.2 mg/dL (2.5-4.6)
[2020-01-05] MEDS: MULTIVITAMIN 10 ML, THIAMINE INJ 100 MG, FOLIC ACID INJ 1 MG in SODIUM CHLORIDE 0.9% 1,... IV SCH (10:01)
--- NOTE | 2020-01-05 10:45 | PHARMACY PROGRESS NOTE ---
- Best Possible Medication History Admit Date and Time: 01/02/20 7605 Processed by: Pharmacy Medication History completed: Yes Patient Interview: Completed Secondary Source(s): Physician records, Pharmacy records, Insurance records (PATIENT INTERVIEWED BY PHARMACY. PATIENT AND SPOUSE ABLE TO CONFIRM HOME MEDICATIONS ) As the person ultimately responsible for medication therapy, providers are able to order a medication from an existing home medication list in [facility] via the "Reconcile Routine" prior to Confirmation of that medication by application support administrator. Such practice is discouraged except when the physician, in their clinical judgment, deems that a medical need exists for a medication without regard to previous use.
[2020-01-05] MEDS ORDERED: VANCOMYCIN INJ 1 GM in SODIUM CHLORIDE 0.9% 250 ML IV SCH (11:00)
[2020-01-05] MEDS: BEER 480 ML CAN PO SCH ×3 (12:38→17:03)
[2020-01-05] MEDS ORDERED: MAGNESIUM SULFATE 2 GRAM 2 GM/50 ML BAG IV ONE (14:00)
[2020-01-05] MEDS: MAGNESIUM OXIDE 400 MG TABLET PO SCH (14:24)
[2020-01-05] MEDS ORDERED: CALCIUM CARBONATE CHEW 500 MG TABLET PO PRN (16:13)
--- NOTE | 2020-01-05 18:23 | PROVIDER PROGRESS NOTE ---
Subjective - Prog Note Date Prog Note Date: 01/05/20 - Subjective Subjective: She reports feeling improved today. Still feels slightly unsteady when ambulating. Reports no chest pain or dyspnea or fevers. Denies dysuria, urgency, frequency. Complains of chronic dysphagia. She is eager to go home. Current Medications - Current Medications Current Medications: Active Medications Acetaminophen (Tylenol) 650 mg PO Q4HR PRN PRN Reason: Pain or Fever > 38C (100.4F) Last Admin: 01/02/20 23:32 Dose: 650 mg Documented by: Amlodipine Besylate (Norvasc) 5 mg PO DAILY [facility] [place] Last Admin: 01/05/20 08:12 Dose: 5 mg Documented by: Atenolol (Tenormin) 25 mg PO DAILY [facility] Last Admin: 01/05/20 08:12 Dose: Not Given Documented by: Atorvastatin Calcium (Lipitor) 80 mg PO QPM [facility] Beer (Beer) 480 ml PO TIDWM [facility] Last Admin: 01/05/20 17:03 Dose: 480 ml Documented by: Calcium Carbonate/Glycine (Tums) 500 mg PO BID PRN PRN Reason: Heartburn Last Admin: 01/05/20 17:02 Dose: 500 mg Documented by: Chlordiazepoxide HCl (Librium) 15 mg PO BID [facility] [place] Multivitamins 10 ml/ Thiamine HCl 100 mg/ Folic Acid 1 mg/Sodium Chloride 1,011.2 mls @ 100 mls/hr IV DAILY [facility] [place] Last Infusion: 01/05/20 14:43 Dose: 100 mls/hr Documented by: Ceftriaxone Sodium 2 gm/ (Sodium Chloride) 100 mls @ 200 mls/hr IV DAILY [facility] [place] Lorazepam (Ativan Inj (Vial)) 1 mg IVP Q30M PRN; Protocol PRN Reason: CIWA >8 Last Admin: 01/02/20 22:18 Dose: 1 mg Documented by: Magnesium Oxide (Mag Ox) 400 mg PO DAILYWM [facility] Last Admin: 01/05/20 14:24 Dose: 400 mg Documented by: Ondansetron HCl (Zofran Inj) 4 mg IVP Q6HR PRN PRN Reason: Nausea / Vomiting Last Admin: 01/02/20 20:10 Dose: 4 mg Documented by: Pantoprazole Sodium (Protonix) 40 mg IVP QDAC [facility] [place] Last Admin: 01/05/20 06:17 Dose: 40 mg Documented by: Sodium Chloride (Normal Saline Flush 0.9%) 10 ml IVP 0100,0900,1700 GIULIANO Last Admin: 01/05/20 17:36 Dose: Not Given Documented by: Sodium Chloride (Normal Saline Flush 0.9%) 10 ml IVP PRN PRN PRN Reason: NEEDED PER PROVIDER ORDERS Last Admin: 01/05/20 10:01 Dose: 10 ml Documented by: Amlodipine Besylate 5 mg PO DAILY 02/26/13 atenoloL [Atenolol] 50 mg PO QPM 02/26/13 Lactobacillus Acidophilus [Probiotic Acidophilus] 1 tab PO DAILY 01/03/20 Multivitamin [Multiple Vitamins] 1 tab PO DAILY 01/03/20 Ascorbic Acid [Vitamin C] 1 tab PO DAILY 01/05/20 B Comp No3/Folic/C/Biotin/Zinc [Nephplex Rx Tablet] 1 tab PO DAILY 01/05/20 Calcium Carbonate/Vitamin D3 [Calcium 250-D Tablet] 1 tab PO DAILY 01/05/20 [place]-3/Dha/Epa/Fish Oil [Fish Oil 1,000 mg Softgel] 1 cap PO DAILY 01/05/20 Vitamin E 1 cap PO DAILY 01/05/20 Objective - Vital Signs/Intake & Output Reviewed Vital Signs: Yes Vital Signs: Vital Signs x48h Temp Pulse Resp BP BP Pulse Ox 01/05/20 15:55 36.7 C 87 18 134/86 H 98 01/05/20 11:11 36.7 C 99 18 118/70 97 Intake & Output: Intake & Output 01/02/20 01/03/20 01/04/20 01/05/20 23:59 23:59 23:59 23:59 Intake Total 2135.2 4521.200 3858.333 3065 Output Total 355 934 1630 2600 Balance 1735.2 4121.200 2258.333 465 - Objective General Appearance: positive: No acute distress, Alert Eyes Bilateral: positive: Normal inspection ENT: positive: ENT inspection nml Neck: positive: Nml inspection Respiratory: positive: No respiratory distress. negative: Wheezes, Rales Cardiovascular: positive: Regular rate & rhythm, No murmur. negative: Tachycardia, Bradycardia, Systolic murmur Abdomen: positive: Non-tender, No distention. negative: Tenderness, Guarding, Rebound Skin: positive: No rash, Warm, Dry Extremities: positive: Full ROM, No pedal edema Neurologic/Psychiatric: positive: Oriented x3, Motor nml. negative: Disoriented to person, Disoriented to place, Disoriented to time - Lab Results Fish Bones: 01/05/20 08:23 01/05/20 08:23 Other Labs: Lab Results x24hrs 01/05/20 01/05/20 01/05/20 Range/Units 16:22 11:05 08:23 WBC (4.8-10.8) x10^3/uL RBC (4.20-5.40) 10^6/uL Hgb (12.0-16.0) g/dL Hct (37.0-47.0) % MCV (81.0-99.0) fL MCH (27.0-31.0) pg MCHC (32.0-36.0) g/dL RDW (12.0-15.0) % Plt Count (130-450) 10^3/uL MPV (7.9-10.8) fL Neut # (Auto) (1.5-6.6) 10^3/uL Lymph # (Auto) (1.5-3.5) 10^3/uL [place] # (Auto) (0.0-1.0) 10^3/uL Eos # (Auto) (0.0-0.7) 10^3/uL Baso # (Auto) (0.0-0.1) 10^3/uL Absolute Nucleated RBC x10^3/uL Nucleated RBC % /100WBC Sodium 139 (135-145) mmol/L Potassium 3.4 L (3.5-5.0) mmol/L Chloride 105 (101-111) mmol/L Carbon Dioxide 23 (21-32) mmol/L Anion Gap 11.0 (6-13) BUN 6 (6-20) mg/dL Creatinine 0.7 (0.4-1.0) mg/dL Estimated GFR (MDRD) 82 L (>89) Glucose 120 H (70-100) mg/dL POC Whole Bld Glucose 93 127 H (70 - 100) mg/dL Calcium 8.3 L (8.5-10.3) mg/dL Phosphorus 2.2 L (2.5-4.6) mg/dL Magnesium 1.1 L (1.7-2.8) mg/dL Last Dose Date Last Dose Time Vancomycin Trough (10.0-20.0) ug/mL 01/05/20 01/05/20 01/05/20 Range/Units 08:23 08:23 06:23 WBC 5.6 (4.8-10.8) x10^3/uL RBC 3.64 L (4.20-5.40) 10^6/uL Hgb 12.1 (12.0-16.0) g/dL Hct 36.9 L (37.0-47.0) % MCV 101.4 H (81.0-99.0) fL MCH 33.2 H (27.0-31.0) pg MCHC 32.8 (32.0-36.0) g/dL RDW 13.8 (12.0-15.0) % Plt Count 186 (130-450) 10^3/uL MPV 9.6 (7.9-10.8) fL Neut # (Auto) 3.6 (1.5-6.6) 10^3/uL Lymph # (Auto) 1.2 L (1.5-3.5) 10^3/uL [place] # (Auto) 0.6 (0.0-1.0) 10^3/uL Eos # (Auto) 0.2 (0.0-0.7) 10^3/uL Baso # (Auto) 0.1 (0.0-0.1) 10^3/uL Absolute Nucleated RBC 0.00 x10^3/uL Nucleated RBC % 0.0 /100WBC Sodium (135-145) mmol/L Potassium (3.5-5.0) mmol/L Chloride (101-111) mmol/L Carbon Dioxide (21-32) mmol/L Anion Gap (6-13) BUN (6-20) mg/dL Creatinine (0.4-1.0) mg/dL Estimated GFR (MDRD) (>89) Glucose (70-100) mg/dL POC Whole Bld Glucose 103 H (70 - 100) mg/dL Calcium (8.5-10.3) mg/dL Phosphorus (2.5-4.6) mg/dL Magnesium (1.7-2.8) mg/dL Last Dose Date UNK Last Dose Time UNK Vancomycin Trough 15.1 (10.0-20.0) ug/mL 01/05/20 Range/Units 00:01 WBC (4.8-10.8) x10^3/uL RBC (4.20-5.40) 10^6/uL Hgb (12.0-16.0) g/dL Hct (37.0-47.0) % MCV (81.0-99.0) fL MCH (27.0-31.0) pg MCHC (32.0-36.0) g/dL RDW (12.0-15.0) % Plt Count (130-450) 10^3/uL MPV (7.9-10.8) fL Neut # (Auto) (1.5-6.6) 10^3/uL Lymph # (Auto) (1.5-3.5) 10^3/uL [place] # (Auto) (0.0-1.0) 10^3/uL Eos # (Auto) (0.0-0.7) 10^3/uL Baso # (Auto) (0.0-0.1) 10^3/uL Absolute Nucleated RBC x10^3/uL Nucleated RBC % /100WBC Sodium (135-145) mmol/L Potassium (3.5-5.0) mmol/L Chloride (101-111) mmol/L Carbon Dioxide (21-32) mmol/L Anion Gap (6-13) BUN (6-20) mg/dL Creatinine (0.4-1.0) mg/dL Estimated GFR (MDRD) (>89) Glucose (70-100) mg/dL POC Whole Bld Glucose 89 (70 - 100) mg/dL Calcium (8.5-10.3) mg/dL Phosphorus (2.5-4.6) mg/dL Magnesium (1.7-2.8) mg/dL Last Dose Date Last Dose Time Vancomycin Trough (10.0-20.0) ug/mL ABX Reporting Has patient been on IV antibiotics over the past 48 hours?: Yes Assessment/Plan - Problem List (1) Bacteremia due to Streptococcus Impression: Ultras grew 1 out of 4 bottle Streptococcus salivarius. I discussed her hospitalization with infectious disease at [facility] who felt that the this should be assumed as a true infection given the patient presented with hypothermia lactic acidosis and developed a fever during this hospitalization. They recommend treating her with ceftriaxone IV and repeating blood cultures. If this is negative then she can be conditioned to oral Levaquin to complete 2 weeks of therapy. They recommended obtaining an echocardiogram which has been ordered. We will repeat blood cultures today. (2) Alcohol abuse Impression: She has not shown evidence of withdrawal. Discussed the importance of alcohol cessation. We will continue her on Librium and continue providing her with a beer with dinner. Social work has provided her with resources for this. (3) Hx of essential hypertension Impression: Her blood pressures been well controlled. We will continue her home medications. (4) Hypoglycemia Impression: Suspect this was likely due to poor oral intake and impaired glycogenolysis in a patient who abuses alcohol. Has resolved. We will discontinue dextrose and monitor her blood glucose. We will also check a TSH. We will check an A1c as well as if it is quite low, this could be suggestive of an insulinoma. (5) Hypothermia Impression: This is also resolved and was likely secondary to the hypoglycemia. We will check a TSH and cortisol level in the morning. Qualifiers: Encounter type: subsequent encounter Qualified Code(s): T68.XXXD - Hypothermia, subsequent encounter (6) Lactic acid acidosis Impression: This has resolved. Unclear if this was related due to sepsis or impaired clearance due to liver dysfunction.
[2020-01-05] MEDS ORDERED: chlordiazePOXIDE 5 MG CAPSULE PO SCH (21:00)
[2020-01-05] MEDS: ATORVASTATIN 40 MG TABLET PO SCH (22:20)
[2020-01-06] MEDS: SODIUM CHLORIDE FLUSH 0.9% 10 ML SYRINGE IVP SCH ×3 (01:41→16:26)
[2020-01-06 05:14] LABS: BASOPHILS % (AUTO) 0.4 %; EOSINOPHILS # (AUTO) 0.2 10^3/uL (0.0-0.7); EOSINOPHILS % (AUTO) 2.2 %; HGB - HEMOGLOBIN 10.9 g/dL (12.0-16.0); LYMPHOCYTES # (AUTO) 1.3 10^3/uL (1.5-3.5); LYMPHOCYTES % (AUTO) 16.9 %; MEAN CORPUSCULAR HEMOGLOBIN 32.8 pg (27.0-31.0); MEAN CORPUSCULAR HGB CONC 33.7 g/dL (32.0-36.0); MEAN CORPUSCULAR VOLUME 97.3 fL (81.0-99.0); MEAN PLATELET VOLUME 9.6 fL (7.9-10.8); MONOCYTES # (AUTO) 0.9 10^3/uL (0.0-1.0); NEUTROPHILS # (AUTO) 5.1 10^3/uL (1.5-6.6); NEUTROPHILS % (AUTO) 68.1 %; PLT - PLATELET COUNT 171 10^3/uL (130-450); RED BLOOD COUNT 3.32 10^6/uL (4.20-5.40); RED CELL DISTRIBUTION WIDTH 13.9 % (12.0-15.0); WHITE BLOOD COUNT 7.4 x10^3/uL (4.8-10.8)
[2020-01-06 05:29] LABS: CALCIUM 8.1 mg/dL (8.5-10.3); CREATININE 0.6 mg/dL (0.4-1.0); MAGNESIUM 1.4 mg/dL (1.7-2.8)
[2020-01-06] MEDS: PANTOPRAZOLE 40 MG VIAL IVP SCH (06:54)
[2020-01-06] MEDS: SODIUM CHLORIDE FLUSH 0.9% 10 ML SYRINGE IVP PRN ×2 (06:54→08:58)
[2020-01-06] MEDS: chlordiazePOXIDE 5 MG CAPSULE PO SCH ×3 (06:55→21:14)
--- NOTE | 2020-01-06 07:49 | PROVIDER PROGRESS NOTE ---
Subjective - Prog Note Date Prog Note Date: 01/06/20 - Subjective Subjective: Reports doing well today. Reports no chest pain or dyspnea. Been tolerating a diet. Reports occasional heartburn. Current Medications - Current Medications Current Medications: Active Medications Acetaminophen (Tylenol) 650 mg PO Q4HR PRN PRN Reason: Pain or Fever > 38C (100.4F) Last Admin: 01/02/20 23:32 Dose: 650 mg Documented by: Amlodipine Besylate (Norvasc) 5 mg PO DAILY [facility] Last Admin: 01/06/20 08:49 Dose: 5 mg Documented by: Atenolol (Tenormin) 25 mg PO DAILY [facility] Last Admin: 01/06/20 14:59 Dose: Not Given Documented by: Atorvastatin Calcium (Lipitor) 80 mg PO QPM [facility] Last Admin: 01/05/20 22:20 Dose: 80 mg Documented by: Calcium Carbonate/Glycine (Tums) 500 mg PO BID PRN PRN Reason: Heartburn Last Admin: 01/05/20 17:02 Dose: 500 mg Documented by: Chlordiazepoxide HCl (Librium) 15 mg PO TID [facility] Last Admin: 01/06/20 12:55 Dose: 15 mg Documented by: Famotidine (Pepcid) 20 mg PO DAILY [facility] Ceftriaxone Sodium 2 gm/ (Sodium Chloride) 100 mls @ 200 mls/hr IV DAILY [facility] Last Infusion: 01/06/20 10:02 Dose: Infused Documented by: Lorazepam (Ativan Inj (Vial)) 1 mg IVP Q30M PRN; Protocol PRN Reason: CIWA >8 Last Admin: 01/02/20 22:18 Dose: 1 mg Documented by: Magnesium Oxide (Mag Ox) 400 mg PO DAILYWM [facility] Last Admin: 01/06/20 08:48 Dose: 400 mg Documented by: Multivitamins (Theragran) 1 tab PO DAILYWM [facility] Last Admin: 01/06/20 12:55 Dose: 1 tab Documented by: Ondansetron HCl (Zofran Odt) 4 mg TL Q6HR PRN PRN Reason: Nausea / Vomiting Sodium Chloride (Normal Saline Flush 0.9%) 10 ml IVP 0100,0900,1700 [facility] Last Admin: 01/06/20 16:26 Dose: Not Given Documented by: Sodium Chloride (Normal Saline Flush 0.9%) 10 ml IVP PRN PRN PRN Reason: NEEDED PER PROVIDER ORDERS Last Admin: 01/06/20 08:58 Dose: 10 ml Documented by: Thiamine HCl (Vitamin B-1) 100 mg PO DAILY [facility] Last Admin: 01/06/20 12:55 Dose: 100 mg Documented by: Amlodipine Besylate 5 mg PO DAILY 02/26/13 atenoloL [Atenolol] 50 mg PO QPM 02/26/13 Lactobacillus Acidophilus [Probiotic Acidophilus] 1 tab PO DAILY 01/03/20 Multivitamin [Multiple Vitamins] 1 tab PO DAILY 01/03/20 Ascorbic Acid [Vitamin C] 1 tab PO DAILY 01/05/20 B Comp No3/Folic/C/Biotin/Zinc [Nephplex Rx Tablet] 1 tab PO DAILY 01/05/20 Calcium Carbonate/Vitamin D3 [Calcium 250-D Tablet] 1 tab PO DAILY 01/05/20 [place]-3/Dha/Epa/Fish Oil [Fish Oil 1,000 mg Softgel] 1 cap PO DAILY 01/05/20 Vitamin E 1 cap PO DAILY 01/05/20 Objective - Vital Signs/Intake & Output Reviewed Vital Signs: Yes Vital Signs: Vital Signs x48h Temp Pulse Resp BP Pulse Ox 01/06/20 03:15 37.2 C 80 16 114/59 L 97 01/06/20 01:15 37.6 C H 101 H 16 124/72 97 Intake & Output: Intake & Output 01/03/20 01/04/20 01/05/20 01/06/20 23:59 23:59 23:59 23:59 Intake Total 4521.200 3858.333 3891.2 Output Total 400 1600 2600 Balance 4121.200 2258.333 1291.2 - Objective General Appearance: positive: No acute distress, Alert Eyes Bilateral: positive: Normal inspection, Conjunctivae nml ENT: positive: ENT inspection nml Neck: positive: Nml inspection Respiratory: positive: No respiratory distress. negative: Wheezes, Rales Cardiovascular: positive: Regular rate & rhythm, No murmur. negative: Tachycardia, Systolic murmur Abdomen: positive: Non-tender, No distention. negative: Tenderness, Guarding, Rebound Skin: positive: Warm, Dry Extremities: positive: Full ROM Neurologic/Psychiatric: positive: Oriented x3 - Lab Results Fish Bones: 01/06/20 04:55 01/06/20 04:55 Other Labs: Lab Results x24hrs 01/06/20 01/06/20 01/06/20 Range/Units 04:55 04:55 04:55 WBC 7.4 (4.8-10.8) x10^3/uL RBC 3.32 L (4.20-5.40) 10^6/uL Hgb 10.9 L (12.0-16.0) g/dL Hct 32.3 L (37.0-47.0) % MCV 97.3 (81.0-99.0) fL MCH 32.8 H (27.0-31.0) pg MCHC 33.7 (32.0-36.0) g/dL RDW 13.9 (12.0-15.0) % Plt Count 171 (130-450) 10^3/uL MPV 9.6 (7.9-10.8) fL Neut # (Auto) 5.1 (1.5-6.6) 10^3/uL Lymph # (Auto) 1.3 L (1.5-3.5) 10^3/uL [place] # (Auto) 0.9 (0.0-1.0) 10^3/uL Eos # (Auto) 0.2 (0.0-0.7) 10^3/uL Baso # (Auto) 0.0 (0.0-0.1) 10^3/uL Absolute Nucleated RBC 0.00 x10^3/uL Nucleated RBC % 0.0 /100WBC Sodium 136 (135-145) mmol/L Potassium 2.7 L (3.5-5.0) mmol/L Chloride 104 (101-111) mmol/L Carbon Dioxide 23 (21-32) mmol/L Anion Gap 9.0 (6-13) BUN 6 (6-20) mg/dL Creatinine 0.6 (0.4-1.0) mg/dL Estimated GFR (MDRD) 98 (>89) Glucose 107 H (70-100) mg/dL POC Whole Bld Glucose (70 - 100) mg/dL Calcium 8.1 L (8.5-10.3) mg/dL Phosphorus 2.0 L (2.5-4.6) mg/dL Magnesium 1.4 L (1.7-2.8) mg/dL TSH 0.67 (0.34-5.60) uIU/mL Last Dose Date Last Dose Time Vancomycin Trough (10.0-20.0) ug/mL 01/05/20 01/05/20 01/05/20 Range/Units 20:39 16:22 11:05 WBC (4.8-10.8) x10^3/uL RBC (4.20-5.40) 10^6/uL Hgb (12.0-16.0) g/dL Hct (37.0-47.0) % MCV (81.0-99.0) fL MCH (27.0-31.0) pg MCHC (32.0-36.0) g/dL RDW (12.0-15.0) % Plt Count (130-450) 10^3/uL MPV (7.9-10.8) fL Neut # (Auto) (1.5-6.6) 10^3/uL Lymph # (Auto) (1.5-3.5) 10^3/uL [place] # (Auto) (0.0-1.0) 10^3/uL Eos # (Auto) (0.0-0.7) 10^3/uL Baso # (Auto) (0.0-0.1) 10^3/uL Absolute Nucleated RBC x10^3/uL Nucleated RBC % /100WBC Sodium (135-145) mmol/L Potassium (3.5-5.0) mmol/L Chloride (101-111) mmol/L Carbon Dioxide (21-32) mmol/L Anion Gap (6-13) BUN (6-20) mg/dL Creatinine (0.4-1.0) mg/dL Estimated GFR (MDRD) (>89) Glucose (70-100) mg/dL POC Whole Bld Glucose 123 H 93 127 H (70 - 100) mg/dL Calcium (8.5-10.3) mg/dL Phosphorus (2.5-4.6) mg/dL Magnesium (1.7-2.8) mg/dL TSH (0.34-5.60) uIU/mL Last Dose Date Last Dose Time Vancomycin Trough (10.0-20.0) ug/mL 01/05/20 01/05/20 01/05/20 Range/Units 08:23 08:23 08:23 WBC 5.6 (4.8-10.8) x10^3/uL RBC 3.64 L (4.20-5.40) 10^6/uL Hgb 12.1 (12.0-16.0) g/dL Hct 36.9 L (37.0-47.0) % MCV 101.4 H (81.0-99.0) fL MCH 33.2 H (27.0-31.0) pg MCHC 32.8 (32.0-36.0) g/dL RDW 13.8 (12.0-15.0) % Plt Count 186 (130-450) 10^3/uL MPV 9.6 (7.9-10.8) fL Neut # (Auto) 3.6 (1.5-6.6) 10^3/uL Lymph # (Auto) 1.2 L (1.5-3.5) 10^3/uL [place] # (Auto) 0.6 (0.0-1.0) 10^3/uL Eos # (Auto) 0.2 (0.0-0.7) 10^3/uL Baso # (Auto) 0.1 (0.0-0.1) 10^3/uL Absolute Nucleated RBC 0.00 x10^3/uL Nucleated RBC % 0.0 /100WBC Sodium 139 (135-145) mmol/L Potassium 3.4 L (3.5-5.0) mmol/L Chloride 105 (101-111) mmol/L Carbon Dioxide 23 (21-32) mmol/L Anion Gap 11.0 (6-13) BUN 6 (6-20) mg/dL Creatinine 0.7 (0.4-1.0) mg/dL Estimated GFR (MDRD) 82 L (>89) Glucose 120 H (70-100) mg/dL POC Whole Bld Glucose (70 - 100) mg/dL Calcium 8.3 L (8.5-10.3) mg/dL Phosphorus 2.2 L (2.5-4.6) mg/dL Magnesium 1.1 L (1.7-2.8) mg/dL TSH (0.34-5.60) uIU/mL Last Dose Date UNK Last Dose Time UNK Vancomycin Trough 15.1 (10.0-20.0) ug/mL 01/05/20 Range/Units 06:23 WBC (4.8-10.8) x10^3/uL RBC (4.20-5.40) 10^6/uL Hgb (12.0-16.0) g/dL Hct (37.0-47.0) % MCV (81.0-99.0) fL MCH (27.0-31.0) pg MCHC (32.0-36.0) g/dL RDW (12.0-15.0) % Plt Count (130-450) 10^3/uL MPV (7.9-10.8) fL Neut # (Auto) (1.5-6.6) 10^3/uL Lymph # (Auto) (1.5-3.5) 10^3/uL [place] # (Auto) (0.0-1.0) 10^3/uL Eos # (Auto) (0.0-0.7) 10^3/uL Baso # (Auto) (0.0-0.1) 10^3/uL Absolute Nucleated RBC x10^3/uL Nucleated RBC % /100WBC Sodium (135-145) mmol/L Potassium (3.5-5.0) mmol/L Chloride (101-111) mmol/L Carbon Dioxide (21-32) mmol/L Anion Gap (6-13) BUN (6-20) mg/dL Creatinine (0.4-1.0) mg/dL Estimated GFR (MDRD) (>89) Glucose (70-100) mg/dL POC Whole Bld Glucose 103 H (70 - 100) mg/dL Calcium (8.5-10.3) mg/dL Phosphorus (2.5-4.6) mg/dL Magnesium (1.7-2.8) mg/dL TSH (0.34-5.60) uIU/mL Last Dose Date Last Dose Time Vancomycin Trough (10.0-20.0) ug/mL ABX Reporting Has patient been on IV antibiotics over the past 48 hours?: Yes Assessment/Plan - Problem List (1) Bacteremia due to Streptococcus Impression: Initial blood culture on admission grew Streptococcus salivarius. This was in for 1 out of 4 bottles. This was discussed with infectious disease at [facility] who recommended treating this as a true infection. Repeat blood cultures have been negative to date. Her echocardiogram did not reveal any obvious vegetations. She has been afebrile with no white count. We will keep her on ceftriaxone IV and if blood cultures are negative for 48 hours we will discharge her on oral Levaquin to complete 2 weeks of therapy. (2) Alcohol abuse Impression: Stable. She is open to the idea of alcohol cessation and her family is quite supportive of her. Social work has provided the patient family with resources. We are no longer providing her beer with meals but we will continue Librium as well as multivitamin and thiamine. Will discharge on Librium taper to prevent withdrawal. (3) Dysphagia Impression: She reports occasional dysphasia with certain foods such as chicken and steak. Reports has been a chronic problem for her that will occur every few months. She is currently tolerating a diet. Discussed with her that she would benefit from endoscopy and recommended that she follow-up with her primary care provider next month as scheduled and request a referral to GI or general surgery for endoscopy. I do not believe endoscopy is warranted during this hospitalization. (4) Hx of essential hypertension Impression: Her blood pressure has been stable. Continue her current antihypertensives. (5) Hypoglycemia Impression: This has resolved. TSH and cortisol within normal limits. Her A1c was 5.6% so do not suspect that she has chronic hypoglycemia. (6) Hypothermia Impression: This was secondary to the hypoglycemia and has resolved. Qualifiers: Encounter type: subsequent encounter Qualified Code(s): T68.XXXD - Hypothermia, subsequent encounter
[2020-01-06] MEDS ORDERED: MAGNESIUM SULFATE 2 GRAM 2 GM/50 ML BAG IV ONE (08:00)
[2020-01-06] MEDS ORDERED: POTASSIUM CHLORIDE 20 MEQ TABLET PO ONE (08:00)
[2020-01-06] MEDS ORDERED: SODIUM CHLORIDE 0.9% 1,000 ML IV ONE (08:11)
[2020-01-06] MEDS ORDERED: SODIUM CHLORIDE 0.9% MINIBAG 100 ML IV ONE (08:12)
[2020-01-06] MEDS: atenoloL 25 MG TABLET PO SCH ×3 (08:48→21:14)
[2020-01-06] MEDS: MAGNESIUM OXIDE 400 MG TABLET PO SCH (08:48)
[2020-01-06] MEDS: amLODIPine 5 MG TABLET PO SCH (08:49)
[2020-01-06] MEDS: cefTRIAXone 2 GM in SODIUM CHLORIDE 0.9% MINIBAG 100 ML IV SCH (09:02)
[2020-01-06] MEDS: POTASSIUM CHLOR 10 MEQ/100 ML 10 MEQ/100 ML BAG IV SCH ×4 (09:13→15:55)
[2020-01-06] MEDS ORDERED: ONDANSETRON ODT 4 MG TABLET TL PRN (11:35)
[2020-01-06 12:05] LABS: HEMOGLOBIN A1c% 5.6 % (4.27-6.07)
[2020-01-06] MEDS: THIAMINE 100 MG TABLET PO SCH (12:55)
[2020-01-06] MEDS: MULTIVITAMIN TABLET PO SCH (12:55)
[2020-01-06] MEDS: ATORVASTATIN 40 MG TABLET PO SCH (21:14)
[2020-01-07] MEDS: chlordiazePOXIDE 5 MG CAPSULE PO SCH ×2 (05:19→13:47)
[2020-01-07] MEDS: SODIUM CHLORIDE FLUSH 0.9% 10 ML SYRINGE IVP SCH ×2 (05:20→10:13)
[2020-01-07 05:26] LABS: BASOPHILS % (AUTO) 0.6 %; EOSINOPHILS # (AUTO) 0.3 10^3/uL (0.0-0.7); HGB - HEMOGLOBIN 11.2 g/dL (12.0-16.0); LYMPHOCYTES # (AUTO) 1.4 10^3/uL (1.5-3.5); LYMPHOCYTES % (AUTO) 22.8 %; MEAN CORPUSCULAR HGB CONC 32.1 g/dL (32.0-36.0); MEAN CORPUSCULAR VOLUME 99.7 fL (81.0-99.0); MEAN PLATELET VOLUME 9.6 fL (7.9-10.8); MONOCYTES # (AUTO) 0.9 10^3/uL (0.0-1.0); MONOCYTES % (AUTO) 14.2 %; NEUTROPHILS # (AUTO) 3.5 10^3/uL (1.5-6.6); NEUTROPHILS % (AUTO) 56.8 %; PLT - PLATELET COUNT 171 10^3/uL (130-450); RED CELL DISTRIBUTION WIDTH 13.9 % (12.0-15.0); WHITE BLOOD COUNT 6.2 x10^3/uL (4.8-10.8)
[2020-01-07 05:40] LABS: CALCIUM 8.3 mg/dL (8.5-10.3); CREATININE 0.6 mg/dL (0.4-1.0); MAGNESIUM 1.8 mg/dL (1.7-2.8); PHOSPHORUS 2.8 mg/dL (2.5-4.6)
[2020-01-07] MEDS ORDERED: POTASSIUM CHLORIDE 20 MEQ TABLET PO ONE (08:00)
[2020-01-07] MEDS ORDERED: SODIUM CHLORIDE 0.9% MINIBAG 100 ML IV ONE (08:07)
[2020-01-07] MEDS: cefTRIAXone 2 GM in SODIUM CHLORIDE 0.9% MINIBAG 100 ML IV SCH (08:08)
[2020-01-07] MEDS: MAGNESIUM OXIDE 400 MG TABLET PO SCH (08:08)
[2020-01-07] MEDS: THIAMINE 100 MG TABLET PO SCH (08:08)
[2020-01-07] MEDS: amLODIPine 5 MG TABLET PO SCH (08:08)
[2020-01-07] MEDS: MULTIVITAMIN TABLET PO SCH (08:08)
[2020-01-07] MEDS ORDERED: polyethylene glycoL 3350 17 GM PACKET PO SCH (09:00)
[2020-01-07] MEDS ORDERED: FAMOTIDINE 20 MG TABLET PO SCH (09:00)
--- NOTE | 2020-01-07 13:58 | Discharge Plan ---
Discharge Plan Problem Reviewed?: Yes Disposition: Home, Self Care Condition: Stable Prescriptions: levoFLOXacin [Levaquin] 750 mg PO DAILY 12 Days #36 tablet chlordiazePOXIDE [Librium] 15 mg PO BID 2 Days #12 capsule Diet: Regular Activity Restrictions: Activity as Tolerated Shower Restrictions: No Driving Restrictions: No Health Concerns: You are seen in the hospital because you were hypothermic and had a low blood sugar. This low blood sugar was likely due to poor oral intake and too much alcohol consumption. A low blood sugar can cause you to become hypothermic. These have both since resolved. We checked your thyroid which is normal. There was concern for possible infection since a culture from your blood grew bacteria. This may have been a contaminant but given how sick you were when you came to the hospital, we spoke with infectious disease doctors at the [facility] and felt that it was best to assume this is a true infection. Your repeat cultures are negative. You were treated with IV antibiotics here in the hospital and you will be discharged on an oral antibiotic which you need to take for 12 more days. It is also important that you stop drinking alcohol. We will provide you with a medication called Librium which can help treat withdrawal symptoms if these develop when you go home. Plan of Treatment: Please take Levaquin 750 mg daily for 12 days. Please take the Librium as prescribed. This will be 15 mg twice a day starting January 07 and 15 mg once in the evening on January 08 and then stop. There were no other changes made to your medication. It is recommended that you follow-up with your primary care provider or your chief airport guide as you would benefit from an endoscopy for your heartburn. Assessment: Patient expressed understanding of the treatment plan. Additional Instructions or Follow Up instructions: Please follow-up with your primary care physician in 1 to 2 weeks. No Smoking: If you smoke, Please STOP! Call for help. Follow-up with: Marianne Salazar MD [Primary Care Provider] -
--- NOTE | 2020-01-07 14:01 | DISCHARGE SUMMARY ---
Discharge Summary Admit Date: 01/02/20 Discharge Date: 01/07/20 Discharging Provider: Luis Alfredo Chi Primary Care Provider: Marianne Salazar Code Status: Attempt Resuscitation Condition at Discharge: Stable Discharge Disposition: 01 Home, Self Care - DIAGNOSES Admission Diagnoses: Dehydration Lactic acid acidosis SIRS Alcohol abuse Hypoglycemia Hypertension hyperlipidemia Discharge Diagnoses with Status of Each Condition: Bacteremia due to Streptococcus - resolved. Alcohol abuse - stable. Dysphagia - stable. History of essential hypertension - stable. Hypoglycemia - resolved. Hypothermia - resolved. Lactic acid acidosis - resolved. - HPI History of Present Illness: H&P per Dr. Paez: The portion of this HPI was obtained from the ED physicians H&P because the patient was initially altered mentally upon presentation to the ED and not able to give an accurate history about her initial presentation. Per the ED physician's HPI: "74-year-old female with a history of alcoholism was found by her this morning less responsive than usual and cold.He got out the thermometer and measured her temperature at 91 and called the ambulance. The patient indicates that she has no specific symptoms and this is after she has been given D50. She arrived to the emergency department with a blood glucose of 32. She was immediately administered D50. She was found to be mildly delayed dehydrated on interrogation of the inferior vena cava and she was administered a banana bag intravenously as well. Her initial lactate was over 10. She has had this similar presentation with sepsis with both pneumonia and urinary tract infection. She denies any current symptoms. She does drink regularly and has had issues with shakes but not seizure or DT's with withdrawal. She was found with mini bottles in her purse this morning." At the time of my exam she was alert and oriented x4. She stated that the reason for her presentation to the ED with dehydration. She said she was diaphoretic and felt off balance. She was also significantly tremulous during my visit and tachycardic. She was brought to the ED by her . Currently she denies chest pain, dyspnea, abdominal pain, nausea, vomiting, fever or chills. She complains of a headache. Her last alcoholic drink was last night. She thinks she drinks a couple of beers daily but she is not very certain. - CONSULTS | PROCEDURES Consultations: Social Work - HOSPITAL COURSE Hospital Course: She was admitted given the lactic acidosis as well as initial hypothermia and hypoglycemia. Hypoglycemia resolved with D5 IV fluids. An A1c was checked which showed that she is not diabetic but also was not abnormally low to suggest chronic hypoglycemia. Cortisol and TSH were within normal limits. Her hypoglycemia did not return despite discontinuing IV fluids and she tolerated diet well with no further episodes of hypoglycemia. It was felt that this may have occurred due to poor oral intake as well as her alcohol abuse which can cause liver impairment. Her lactic acidosis resolved with IV fluids. Initially there is no obvious source of infection as her urinalysis and chest x-ray were unremarkable. 1 out of 4 blood cultures on admission grew Streptococcus salivarius. She is initially hypothermic but she spiked a fever on hospital day 2 and she was not actively rewarmed when she was hypothermic so it was felt that this was likely a true fever. Her blood cultures were discussed with infectious disease at [facility] via the med [employer] line and given her presentation, they felt it would be warranted to treat this is a true infection. She was treated with IV ceftriaxone and repeat blood cultures were obtained and have been negative now for over 48 hours. She will be discharged on oral Levaquin as recommended by infectious disease previously for 12 more days to complete 14 days of therapy. An echocardiogram was obtained which did not suggest endocarditis. The patient has remained afebrile with no leukocytosis. She did not show evidence of alcohol withdrawal during this hospitalization. She was initially treated with a banana bag and she was given beer with her meals. After discussion with her and social work, she agreed to discontinuing the beer and she was provided with Librium to prevent withdrawal. She did well during his hospitalization and she was provided with 2 more days of Librium taper at home to prevent withdrawal. We discussed extensively the importance of alcohol cessation. Her family is quite supportive of of her and would like her to quit alcohol. She did complain of occasional dysphagia with certain foods which she states has been going on for many years. Given the Streptococcus salivarius may be from the GI tract, I recommended an outpatient endoscopy at some point. Given this is a chronic problem for her, and inpatient endoscopy was not pursued. She was encouraged to follow-up with her mortgage banker on outpatient basis for this endoscopy. - ALLERGIES Allergies/Adverse Reactions: Allergies Allergy/AdvReac Type Severity Reaction Status Date / Time lisinopril AdvReac Intermediate angioedema Verified 09/26/20 11:29 paroxetine HCl * [From Paxil] AdvReac Intermediate shakes/cold Verified 01/02/20 11:29 triamterene [Triamterene] AdvReac Intermediate low sodium Verified 01/02/20 11:29 and potassium levels - MEDICATIONS Home Medications: Ambulatory Orders Medication Instructions Recorded Confirmed Amlodipine Besylate 5 mg PO DAILY 02/26/13 01/05/20 atenoloL [Atenolol] 50 mg PO QPM 02/26/13 01/05/20 Aspirin EC [Ecotrin] 325 mg PO DAILY #60 tablet 03/26/18 01/05/20 Atorvastatin Calcium [Lipitor] 80 mg PO DAILY #60 tablet 03/26/18 01/04/20 Folic Acid 1 mg PO DAILY #30 tablet 03/26/18 01/05/20 Lactobacillus Acidophilus 1 tab PO DAILY 01/03/20 01/03/20 [Probiotic Acidophilus] Multivitamin [Multiple Vitamins] 1 tab PO DAILY 01/03/20 01/05/20 Ascorbic Acid [Vitamin C] 1 tab PO DAILY 01/05/20 01/05/20 B Comp No3/Folic/C/Biotin/Zinc 1 tab PO DAILY 01/05/20 01/05/20 [Nephplex Rx Tablet] Calcium Carbonate/Vitamin D3 1 tab PO DAILY 01/05/20 01/05/20 [Calcium 250-D Tablet] [place]-3/Dha/Epa/Fish Oil [Fish Oil 1 cap PO DAILY 01/05/20 01/05/20 1,000 mg Softgel] Vitamin E 1 cap PO DAILY 01/05/20 01/05/20 chlordiazePOXIDE [Librium] 15 mg PO BID 2 Days #12 capsule 01/07/20 levoFLOXacin [Levaquin] 750 mg PO DAILY 12 Days #36 tablet 01/07/20 - PHYSICAL EXAM AT DISCHARGE General Appearance: positive: No acute distress, Alert Eyes Bilateral: positive: Normal inspection, Conjunctivae nml ENT: positive: ENT inspection nml Neck: positive: Nml inspection Respiratory: positive: No respiratory distress. negative: Wheezes, Rales Cardiovascular: positive: Regular rate & rhythm, No murmur. negative: Tachycardia, Bradycardia, Systolic murmur Abdomen: positive: Non-tender, No distention. negative: Tenderness, Guarding, Rebound Skin: positive: Warm, Dry Extremities: positive: Full ROM, No pedal edema Neurologic/Psychiatric: positive: Oriented x3, Motor nml. negative: Disoriented to person, Disoriented to place, Disoriented to time Physical Exam Other/Comments: Vital Signs - 24 hr 01/06/20 01/06/20 01/07/20 20:53 23:51 05:00 Temperature 37.0 C 36.9 C 36.8 C Heart Rate [ 65 Brachial] Heart Rate [ 68 70 Monitoring electrodes] Respiratory 18 16 16 Rate Blood Pressure 128/56 L 123/61 [Left Brachial artery] Blood Pressure 140/67 H [Right Brachial artery] O2 Saturation 100 96 01/07/20 01/07/20 07:38 12:35 Temperature 36.8 C 36.5 C Heart Rate [ 69 86 Brachial] Heart Rate [ Monitoring electrodes] Respiratory 20 16 Rate Blood Pressure 134/66 H [Left Brachial artery] Blood Pressure 138/71 H [Right Brachial artery] O2 Saturation 98 99 Oxygen O2 Source Room air - LABS Result Diagrams: 01/07/20 05:05 01/07/20 05:05 - DIAGNOSTIC IMAGING Diagnostic Imaging Results: Final report reviewed - FOLLOW UP Follow Up: She was asked to follow-up with her primary care provider later this month as scheduled. It was recommended that she be referred to gastroenterology for an outpatient endoscopy given her occasional dysphagia. - TIME SPENT Time Spent in Discharge (Minutes): 35
[2020-01-07 17:20] VITALS: BP 144/81
== END 2020-01-07 16:32 | disposition home or self-care (01) | DRG 872 ==
LOC: ED 11:13 → ICU 17:55 → MS2 01-03 16:06
PROVIDERS: ADMIT Specialist; ATTEND Internal Medicine
DX: R78.81 Bacteremia (principal); E87.2 Acidosis; F10.929 Alcohol use, unspecified with intoxication, unspecified; B95.5 Unspecified streptococcus as the cause of diseases classified elsewhere; R01.1 Cardiac murmur, unspecified; E86.0 Dehydration; F10.10 Alcohol abuse, uncomplicated; E16.2 Hypoglycemia, unspecified; R68.0 Hypothermia, not associated with low environmental temperature; I10 Essential (primary) hypertension; E78.5 Hyperlipidemia, unspecified; R13.10 Dysphagia, unspecified; H54.7 Unspecified visual loss; F41.0 Panic disorder [episodic paroxysmal anxiety]; F41.9 Anxiety disorder, unspecified; Z79.82 Long term (current) use of aspirin; Z79.899 Other long term (current) drug therapy; Z87.891 Personal history of nicotine dependence
CPT/HCPCS: 36415; 71046; 80048; 80053; 80202; 81003; 82009; 82533; 82803; 83036; 83605; 83690; 83735; 84100; 84443; 84484; 85025; 85610; 85730; 87040; 87077; 87086; 87150; 87181; 93005; 93306; 96361; 96365; 96375; 99284; 99285; A9270; J2060; J3370; J3411; 80320; 81001

== ENCOUNTER 2023-07-17 14:23 | Outpatient (CLI) | payer MEDICARE, OTHER ==
[2023-07-17 19:50] LABS: BILIRUBIN,URINE NEGATIVE (NEGATIVE); GLUCOSE, URINE (UA) NEGATIVE (NEGATIVE); KETONES,URINE (UA) TRACE mg/dL (NEGATIVE); LEUKOCYTE ESTERASE, URINE LARGE (NEGATIVE); NITRITE,URINE POSITIVE (NEGATIVE); OCCULT BLOOD,URINE NEGATIVE (NEGATIVE); PH,URINE 5.5 PH (5.0-7.5); PROTEIN,URINE 30 mg/dL (NEGATIVE); UROBILINOGEN,URINE 1 (NORMAL) E.U./dL (NORMAL)
[2023-07-17 20:02] LABS: CLARITY,URINE CLOUDY (CLEAR)
[2023-07-17 20:17] LABS: BACTERIA,URINE Moderate /HPF (None Seen); RBC,URINE 0-5 /HPF (0-5); SQUAMOUS EPITHELIAL CELL,UR RARE Squamous (<= Few); WBC,URINE >25 /HPF (0-5)
== END 2023-07-17 14:24 | disposition home or self-care (01) ==
LOC: LAB.S 14:23
DX: M16.11 Unilateral primary osteoarthritis, right hip (principal)
CPT/HCPCS: 81001

== ENCOUNTER 2023-08-01 14:20 | Outpatient (CLI) | payer MEDICARE, OTHER ==
[2023-08-01 19:29] LABS: BILIRUBIN,URINE NEGATIVE (NEGATIVE); GLUCOSE, URINE (UA) NEGATIVE (NEGATIVE); KETONES,URINE (UA) NEGATIVE (NEGATIVE); LEUKOCYTE ESTERASE, URINE NEGATIVE (NEGATIVE); NITRITE,URINE NEGATIVE (NEGATIVE); OCCULT BLOOD,URINE NEGATIVE (NEGATIVE); PH,URINE 5.5 PH (5.0-7.5); PROTEIN,URINE NEGATIVE (NEGATIVE); UROBILINOGEN,URINE 0.2 (NORMAL) E.U./dL (NORMAL)
[2023-08-01 19:30] LABS: CLARITY,URINE CLEAR (CLEAR)
== END 2023-08-01 14:21 | disposition home or self-care (01) ==
LOC: LAB.S 14:20
PROVIDERS: ATTEND Orthopaedic Surgery Adult Reconstructive Orthopaedic Surgery
DX: M16.11 Unilateral primary osteoarthritis, right hip (principal)
CPT/HCPCS: 81001; 81003

== ENCOUNTER 2023-08-06 08:00 | Outpatient (CLI) | payer MEDICARE, OTHER ==
[2023-08-06 15:17] LABS: BILIRUBIN,URINE NEGATIVE (NEGATIVE); GLUCOSE, URINE (UA) NEGATIVE (NEGATIVE); KETONES,URINE (UA) NEGATIVE (NEGATIVE); LEUKOCYTE ESTERASE, URINE MODERATE (NEGATIVE); NITRITE,URINE POSITIVE (NEGATIVE); OCCULT BLOOD,URINE NEGATIVE (NEGATIVE); PROTEIN,URINE NEGATIVE (NEGATIVE); UROBILINOGEN,URINE 0.2 (NORMAL) E.U./dL (NORMAL)
[2023-08-06 15:21] LABS: CLARITY,URINE HAZY (CLEAR)
[2023-08-06 15:52] LABS: BACTERIA,URINE Many /HPF (None Seen); RBC,URINE 0-5 /HPF (0-5); SQUAMOUS EPITHELIAL CELL,UR RARE Squamous (<= Few); WBC,URINE >25 /HPF (0-5)
== END 2023-08-06 23:59 | disposition home or self-care (01) ==
LOC: LAB.R 08:00
PROVIDERS: ATTEND Orthopaedic Surgery Adult Reconstructive Orthopaedic Surgery
DX: M16.11 Unilateral primary osteoarthritis, right hip (principal); R82.90 Unspecified abnormal findings in urine
CPT/HCPCS: 81001; 81003

== ENCOUNTER 2023-08-09 08:00 | Outpatient (CLI) | payer MEDICARE, OTHER | END 2023-08-09 23:59 | disposition home or self-care (01) | LOC: LAB.S 08:00 | PROVIDERS: ATTEND Internal Medicine | DX: R39.9 Unspecified symptoms and signs involving the genitourinary system (principal) | CPT/HCPCS: 87086; 87181 ==

== ENCOUNTER 2023-08-26 08:00 | Outpatient (CLI) | payer MEDICARE, OTHER ==
[2023-08-26 18:20] LABS: BILIRUBIN,URINE NEGATIVE (NEGATIVE); GLUCOSE, URINE (UA) NEGATIVE (NEGATIVE); KETONES,URINE (UA) NEGATIVE (NEGATIVE); LEUKOCYTE ESTERASE, URINE SMALL (NEGATIVE); NITRITE,URINE POSITIVE (NEGATIVE); OCCULT BLOOD,URINE NEGATIVE (NEGATIVE); PROTEIN,URINE NEGATIVE (NEGATIVE); UROBILINOGEN,URINE 0.2 (NORMAL) E.U./dL (NORMAL)
[2023-08-26 18:28] LABS: CLARITY,URINE CLOUDY (CLEAR)
[2023-08-26 18:41] LABS: BACTERIA,URINE Moderate /HPF (None Seen); RBC,URINE 0-5 /HPF (0-5); SQUAMOUS EPITHELIAL CELL,UR NONE SEEN (<= Few)
== END 2023-08-26 23:59 | disposition home or self-care (01) ==
LOC: LAB.R 08:00
PROVIDERS: ATTEND Internal Medicine
DX: R05.1 Acute cough (principal); R30.0 Dysuria
CPT/HCPCS: 81001; 87086

== ENCOUNTER 2023-08-26 15:37 | Outpatient (CLI) | payer MEDICARE, OTHER ==
--- NOTE | 2023-08-26 17:05 | XRAY Report ---
PROCEDURE: Chest 2V INDICATIONS: ACUTE COUGH TECHNIQUE: 2 views of the chest were acquired. COMPARISON: None. FINDINGS: Surgical changes and devices: Post-ORIF changes are seen in right proximal humeral shaft. Lungs and pleura: No pleural effusions or pneumothorax. There is hyperinflation. No definite focal i nfiltrate. Mediastinum: Mediastinal contours appear normal. Heart size is normal. Bones and chest wall: No suspicious bony lesions. Overlying soft tissues appear unremarkable. IMPRESSION: No acute cardiopulmonary process. COPD. Reviewed by: Jamie Starks MD on 08/26/2023 5:04 PM PDT Approved by: Jamie Starks MD on 08/26/2023 5:04 PM PDT Station ID: [id number]
== END 2023-08-26 15:38 | disposition home or self-care (01) ==
LOC: DI 15:37
PROVIDERS: ATTEND Internal Medicine
DX: J44.9 Chronic obstructive pulmonary disease, unspecified (principal); R30.0 Dysuria; R05.1 Acute cough
CPT/HCPCS: 81001; 87086

== ENCOUNTER 2023-10-18 14:13 | Outpatient (CLI) | payer MEDICARE, OTHER ==
[2023-10-18 20:13] LABS: BILIRUBIN,URINE NEGATIVE (NEGATIVE); GLUCOSE, URINE (UA) NEGATIVE (NEGATIVE); KETONES,URINE (UA) TRACE mg/dL (NEGATIVE); LEUKOCYTE ESTERASE, URINE NEGATIVE (NEGATIVE); NITRITE,URINE NEGATIVE (NEGATIVE); OCCULT BLOOD,URINE NEGATIVE (NEGATIVE); PH,URINE 5.5 PH (5.0-7.5); PROTEIN,URINE NEGATIVE (NEGATIVE); UROBILINOGEN,URINE 0.2 (NORMAL) E.U./dL (NORMAL)
[2023-10-18 20:14] LABS: CLARITY,URINE CLOUDY (CLEAR)
[2023-10-18 20:21] LABS: AMORPHOUS SEDIMENT,UR Few /LPF; BACTERIA,URINE Moderate /HPF (None Seen); CRYSTALS,URINE 6-10 Calcium Oxalate /LPF; RBC,URINE 0-5 /HPF (0-5); SQUAMOUS EPITHELIAL CELL,UR FEW Squamous (<= Few); WBC,URINE 0-3 /HPF (0-5)
== END 2023-10-18 14:14 | disposition home or self-care (01) ==
LOC: LAB.S 14:13
PROVIDERS: ATTEND Internal Medicine
DX: N39.0 Urinary tract infection, site not specified (principal)
CPT/HCPCS: 81001; 87086

== ENCOUNTER 2023-11-04 14:33 | Outpatient (CLI) | payer MEDICARE, OTHER | END 2023-11-04 14:34 | disposition home or self-care (01) | LOC: LAB.S 14:33 | PROVIDERS: ATTEND Internal Medicine | DX: N39.0 Urinary tract infection, site not specified (principal); Z86.19 Personal history of other infectious and parasitic diseases; Z87.440 Personal history of urinary (tract) infections ==

== ENCOUNTER 2023-11-11 08:00 | Outpatient (CLI) | payer MEDICARE, OTHER ==
[2023-11-11 20:12] LABS: BILIRUBIN,URINE NEGATIVE (NEGATIVE); GLUCOSE, URINE (UA) NEGATIVE (NEGATIVE); KETONES,URINE (UA) NEGATIVE (NEGATIVE); LEUKOCYTE ESTERASE, URINE NEGATIVE (NEGATIVE); NITRITE,URINE NEGATIVE (NEGATIVE); OCCULT BLOOD,URINE TRACE-INTA (NEGATIVE); PH,URINE 5.5 PH (5.0-7.5); PROTEIN,URINE NEGATIVE (NEGATIVE); UROBILINOGEN,URINE 0.2 (NORMAL) E.U./dL (NORMAL)
[2023-11-11 20:14] LABS: CLARITY,URINE CLEAR (CLEAR)
[2023-11-11 20:34] LABS: BACTERIA,URINE None Seen /HPF (None Seen); RBC,URINE 0-5 /HPF (0-5); SQUAMOUS EPITHELIAL CELL,UR NONE SEEN (<= Few)
== END 2023-11-11 23:59 | disposition home or self-care (01) ==
LOC: LAB.S 08:00
PROVIDERS: ATTEND Internal Medicine
DX: N39.0 Urinary tract infection, site not specified (principal); Z86.19 Personal history of other infectious and parasitic diseases; Z87.440 Personal history of urinary (tract) infections
CPT/HCPCS: 81001; 87086; 87181